=== PATIENT | female | born 1990 | race Caucasian/White ===

== ENCOUNTER 2019-02-16 05:31 | Inpatient (IN) ==
--- NOTE | 2019-02-15 08:49 | PAT Medication Instructions ---
Medication Instructions Date of Service February 15, 2019 Home Medications aspirin 81 mg tablet,delayed release 81 mg PO QAM PNV cmb#95-ferrous fumarate-FA [] 1 tab PO QAM DO NOT take the morning of surgery aspirin 81 mg tablet,delayed release 81 mg PO QAM PNV cmb#95-ferrous fumarate-FA [] 1 tab PO QAM Take morning of surgery NOTHING TO EAT OR DRINK AFTER MIDNIGHT Other Notes If you have any questions please call us at [phone] or [phone] or [phone] or [phone]
--- NOTE | 2019-02-15 13:57 | Anesthesiology Consultation ---
Date of Service February 15, 2019 Assessment & Plan (1) Encounter for pre-operative examination: - No previous anesthesia records Chart Review Chart Review: Acceptable Risk for Surgery and Patient seen in Pre Admission Testing Consults Requested none Teaching & Discussion Pre-Anesthesia Teaching/Discussion Notes: Instructed NPO after midnight before surgery, except medications with 15 cc of water. Medication instructions provided according to the PAT guidelines. History Surgery Operation Date: 02/16/19 07:30 Proposed Procedures p Section in LD - Harman Lipscomb MD Height/Weight Height: 5 ft 10 in Weight: 115.8 kg Allergies Allergy/AdvReac Type Severity Reaction Status Date / Time No Known Allergies Allergy Verified 02/15/19 13:00 Medications Home Medications Medication Instructions Recorded Confirmed Last Taken aspirin 81 mg tablet,delayed 81 mg PO QAM 01/26/19 02/15/19 Unknown release PNV cmb#95-ferrous fumarate-FA 1 tab PO QAM 02/09/19 02/15/19 Unknown [] Past Medical History Medical History History of migraine headaches induced hypertension REASON FOR ASA DAILY Exercise / Class Metabolic Activity II 4-5 Yardwork/Stairs/Walk up hill (Caring for her 3.5 year old. Able to climb stairs. Denies CP or SOB with activity. ) Past Family History Family History Father Dyslipidemia Hypertension Grandmother Breast cancer age 75 Aunt Multiple gestation Grandfather (Paternal) Family history of diabetes mellitus Grandmother (Paternal) Family history of diabetes mellitus Past Surgical History Surgical History S/P tonsillectomy S/P wisdom tooth extraction Past Anesthesia History No Hx of Anesthesia Complications Paternal Uncle had "allergic reaction" to general anesthesia at the age of 12. Now in his 50's. Unsure of any other details. History of PONV No Hx of PONV and No Hx of Motion Sickness Social History Smoking Status: Never smoker Do You Dip or Chew Tobacco: No Hx Alcohol Use: No Hx Substance Use: No substance use type: does not use Review of Systems Patient denies chest pain, shortness of breath, dyspnea on exertion, joint pain, reflux, cough, wheezing, palpitations. Physical Exam Vital Signs BP: 128/84 P: 104 R: 18 T: 97.9 SPO2: 97% on RA ENMT Thyromental Distance: > or= 3.5 Finger Breadths (4) Mallampati Class: I Neck normal visual inspection; neck extension not limited Respiratory normal respiratory effort Auscultation: lungs clear to auscultation bilaterally Cardiovascular Rate/Rhythm: regular rate and regular rhythm Heart Sounds: no murmur Neurologic moves all extremities Psychiatric Orientation: alert and oriented x 3
--- NOTE | 2019-02-15 15:07 | History and Physical Report ---
DATE OF ADMISSION: 02/16/2019 PLANNED PROCEDURE: Primary low transverse section for breech presentation. BRIEF HISTORY: Catarina is a 28-year-old G2, P1-0-0-1, who will be admitted at 39 weeks 5 days gestational age for scheduled primary section for breech presentation. Today, the patient is denying any significant contractions, vaginal bleeding or leakage of fluid, and reporting good movement. The baby was noted to be in persistent breech position on ultrasound today. The options for proceeding with a primary section versus an attempted external cephalic version was had with Catarina and her today. At this point, they are undecided how they would like to proceed, and therefore, we will start planning to proceed with the primary and will convert to an ECV with induction if the patient would like to proceed in that direction. We discussed that the highest probability for success would be if this was done after administration of the spinal which would be being administered for the anyhow. COURSE: The patient presented for care at approximately 10 weeks gestational age. course has been complicated by a breech presentation of fetus as well as Rh negative blood type. The was noted to have pyelectasis on ultrasound with slight improvement on third-trimester reevaluation. PAST MEDICAL HISTORY: The patient denied any significant past medical history. PAST SURGICAL HISTORY: 1. Morgan tooth extraction. 2. Tonsillectomy. PAST OB HISTORY: The patient has had 1 prior normal spontaneous vaginal delivery, delivered at term. The patient underwent an induction of labor for gestational hypertension at 40 weeks with prior . CURRENT MEDICATIONS: 1. vitamins. 2. Baby aspirin. ALLERGIES: The patient denies any known drug allergies. PHYSICAL EXAMINATION: VITAL SIGNS: Today, weight 255 pounds, height 5 feet 10 inches, BMI 36.6. GENERAL: The patient is well appearing in no acute distress, alert and oriented x3. CARDIAC: Regular rate and rhythm. LUNGS: Showed no labored breathing. ABDOMEN: Soft, nontender, gravid with fetus in persistent breech presentation on ultrasound. heart rate was obtained today at 150 beats per minute. EXTREMITIES: Lower extremities were unremarkable bilaterally. ASSESSMENT: Ms. Loera is a 28-year-old G2, P1-0-0-1 with a planned primary section for persistent breech presentation. The options were discussed in clinic today including an external cephalic version versus a primary section. The patient is entirely undecided how she would like to proceed. We discussed that if she would like to do an ECV that we would proceed in the morning towards a section and that after spinal was administered, we would attempt the cephalic version at that time as this has been shown to increase the success rates of version by approximately 50%. The patient will consider her options and we will rediscuss in the morning. Verbal consent for ECV optained. PLAN: 1. Fetus reassuring heart tones obtained today. 2. Labor, the patient not in labor, planning for versus external cephalic version tomorrow. 3. Vitals: The patient had initial blood pressure which was elevated. Recheck after 5 minutes of sitting was noted to be normal. We will continue to monitor. Rh negative. The patient will receive RhoGAM eval after delivery. hemorrhage risk considered low risk. We will collect a CBC, type and screen and since she is proceeding with , we will cross match for 1 unit. UBALDO
[2019-02-16] MEDS: LACTATED RINGER'S 1,000 ML IV SCH ×4 (05:45→23:55)
[2019-02-16 05:54] LABS: Basophils # (auto) 0.02 K/uL (0-0.2); Basophils % (auto) 0.2 %; Eosinophils # (auto) 0.11 K/uL (0-0.5); Eosinophils % (auto) 0.9 %; Hematocrit (blood only) 33.8 % (37-47); Hemoglobin 11.3 g/dL (12.0-16.0); Immature Granulocytes # (auto) 0.07 K/uL (0.00-0.02); Immature Granulocytes % (auto) 0.6 %; Lymphocytes # (auto) 1.94 K/uL (1.2-3.4); Mean Corpuscular Hemoglobin 27.8 pg (25-34); Mean Platelet Volume 11.2 fL (7.4-10.4); Monocytes # (auto) 0.88 K/uL (0.11-0.59); Monocytes % (auto) 7.3 %; Neutrophils # (auto) 9.09 K/uL (1.4-6.5); Platelet Count 205 K/uL (130-400); RDW Coefficient of Variation 14.9 % (11.5-14.5); RDW Standard Deviation 45.3 fL (36.4-46.3); Red Blood Count 4.07 M/uL (4.2-5.4); White Blood Count 12.11 K/uL (4.8-10.8)
[2019-02-16 05:58] LABS: Mean Corpuscular Hgb Conc 33.4 g/dL (32-36)
[2019-02-16] MEDS ORDERED: CEFAZOLIN 3,000 MG in DEXTROSE 5% 50 ML IV SCH (06:00)
[2019-02-16] MEDS ORDERED: CITRIC ACID/SODIUM CITRATE 15 ML UDC PO SCH (06:00)
--- NOTE | 2019-02-16 07:35 | History & Physical Bridge Note ---
Date of Service February 16, 2019 History & Physical Bridge Note I have examined the patient, reviewed the History & Physical and in the interval since the performance of the History & Physical I have noted the following changes of clinical significance: no changes noted
[2019-02-16] MEDS ORDERED: BUPIVACAINE 0.5 % 5 MG/1 ML PF 10ML VIAL ONE (07:56)
[2019-02-16] MEDS ORDERED: ePHEDrine sulfate 50 MG/ML AMP ONE (08:30)
[2019-02-16] MEDS ORDERED: ePHEDrine sulfate 50 MG/ML SYR ONE (08:30)
[2019-02-16] MEDS ORDERED: PHENYLEPHRINE 100MCG/ML 5ML SYR ONE (08:30)
[2019-02-16] MEDS ORDERED: fentaNYL 2MCG/ML ROPIV 1.25MG/ML 100 ML BAG EPI ONE (08:49)
[2019-02-16] MEDS ORDERED: OXYTOCIN 30 UNITS/500 ML BAG IV PRN ×2 (08:54→08:55)
[2019-02-16] MEDS ORDERED: LACTATED RINGER'S 1,000 ML IV PRN (08:54)
[2019-02-16] MEDS ORDERED: fentaNYL 2MCG/ML ROPIV 1.25MG/ML 100 ML BAG EPI PRN (09:11)
[2019-02-16] MEDS ORDERED: DiphenhydrAMINE HCL 50 MG/ML VIAL IV PRN (09:11)
[2019-02-16] MEDS ORDERED: NALOXONE HCL 0.4 MG/1 ML VIAL/CARP IV PRN (09:11)
[2019-02-16] MEDS ORDERED: ePHEDrine sulfate 50 MG/ML AMP IV PRN (09:11)
[2019-02-16] MEDS ORDERED: NALBUPHINE HCL INJ 10 MG/ML AMP IV PRN (09:11)
[2019-02-16] MEDS ORDERED: ONDANSETRON INJ 2 MG/ML 2 ML VIAL IV PRN (09:11)
[2019-02-16] MEDS ORDERED: NALOXONE HCL 1 MG in SODIUM CHLORIDE 0.9% 1000ML 1,000 ML IV PRN (09:11)
--- NOTE | 2019-02-16 09:25 | Labor Progress Brief Note ---
Date of Service February 16, 2019 Subjective A successful ECV was performed in the OR under epidural anesthesia. The procedure was completed in approximately 1 minute and was complicated by bradycardia lasting approximately 3-4 minutes. There was also noted to be maternal hypotension following epidural which contributed to bradycardia. Monitoring continued in the OR for about 20-25 minutes following ECV. Patient doing well. Assessment & Plan (1) Supervision of normal intrauterine in multigravida: 28yo at 39.5 weeks GA. IOL following successful ECV. 1. Fetus: Cat 1 2. Labor: Will start augmentation with oxytocin and AROM when able 3. Vitals: Stable at present. will continue to monitor 4. Epidural in place 5. GBS negative 6. Rh negative - Rh eval following delivery Physical Exam Gastrointestinal (Abdomen): Inspection/Auscultation: abdomen normal to inspection Percussion/Palpation: abdomen soft; abdomen nontender Genitourinary: OB Exam Abdomen: + vertex (Reconfirmed via US at time of cervic al exam ) Manual OB Exam: + cervical dilation 1 cm, + cervical effacement 40% and + station high OB Exam Monitor Tracing: + external FHT monitor used, + external uterine monitor used, + category I and + normal FHT variability Results & Data Vital Signs (Past 12 Hours) Vital Signs Temp Pulse Resp BP Pulse Ox 02/16/19 09:14 101 H 104/63 02/16/19 09:10 100 H 99 02/16/19 09:05 95 H 100 02/16/19 09:00 104 H 99 02/16/19 08:58 103 H 142/65 H 02/16/19 08:56 109 H 147/68 H 02/16/19 08:55 111 H 149/69 H 100 02/16/19 08:53 110 H 142/72 H 02/16/19 08:50 108 H 129/65 100 02/16/19 08:49 107 H 134/63 02/16/19 08:47 109 H 136/64 02/16/19 07:06 37.1 C 18 02/16/19 07:02 73 140/77 02/16/19 06:26 75 130/78 02/16/19 05:44 36.7 C 18 02/16/19 05:38 36.7 C 92 H 18 156/82 H
--- NOTE | 2019-02-16 10:15 | Post Operative Brief Note ---
PG Immediate Post Op with CF Date of Surgery February 16, 2019 Pre & Post Diagnosis Operation Date: 02/16/19 07:30 <No data on this case meets the specified criteria> Pre operative: Breech presentation Post-operative: Successful cephalic version Procedure Operation Date: 02/16/19 07:30 External cephalic version Surgeon Harman Lipscomb MD Agile Qa Tester None Estimated Blood Loss 0 Findings Consistent with Post-Op Diagnosis
--- NOTE | 2019-02-16 11:35 | Anesthesiology Progress Note ---
Date of Service February 16, 2019 Anesthesia Post Procedure Vital Signs Vital Signs: Temp Pulse Resp BP Pulse Ox 02/16/19 11:30 88 97 02/16/19 11:25 85 97 02/16/19 11:20 93 H 96 02/16/19 11:15 98 H 92/55 L 96 02/16/19 11:10 93 H 97 02/16/19 11:05 87 97 02/16/19 11:00 88 96 02/16/19 10:55 98 H 96 02/16/19 10:50 95 H 96 02/16/19 10:45 89 131/63 97 02/16/19 10:40 89 96 02/16/19 10:35 96 H 96 02/16/19 10:30 95 H 96 02/16/19 10:29 88 125/60 02/16/19 10:25 90 96 02/16/19 10:20 90 95 02/16/19 10:15 88 133/61 97 02/16/19 10:10 89 96 02/16/19 10:05 90 96 02/16/19 10:00 102 H 96 02/16/19 09:59 86 131/64 02/16/19 09:55 93 H 97 02/16/19 09:50 97 H 98 02/16/19 09:45 94 H 97 02/16/19 09:44 98 H 135/67 02/16/19 09:40 97 H 98 02/16/19 09:35 92 H 99 02/16/19 09:31 97 H 137/61 02/16/19 09:30 104 H 99 02/16/19 09:25 100 H 99 02/16/19 09:20 99 H 99 02/16/19 09:15 94 H 99 02/16/19 09:14 101 H 104/63 02/16/19 09:10 100 H 99 02/16/19 09:05 95 H 100 02/16/19 09:00 104 H 99 02/16/19 08:58 37.0 C 103 H 18 142/65 H 02/16/19 08:56 109 H 147/68 H 02/16/19 08:55 111 H 149/69 H 100 02/16/19 08:53 110 H 142/72 H 02/16/19 08:50 108 H 129/65 100 02/16/19 08:49 107 H 134/63 02/16/19 08:47 109 H 136/64 02/16/19 07:06 37.1 C 02/16/19 07:02 73 140/77 02/16/19 06:26 75 130/78 02/16/19 05:44 36.7 C 02/16/19 05:38 36.7 C 92 H 18 156/82 H Transfer of Care Handoff Completed per policy Notes Mental Status: alert / awake / arousable and participated in evaluation Nausea / Vomiting: adequately controlled Pain: adequately controlled Airway Patency, RR, SpO2: stable & adequate BP & HR: stable & adequate Hydration State: stable & adequate Neuraxial Anesthesia: was administered and see Notes below Anesthetic Complications: no major complications apparent and Pt Satisfied with anesthetic care Notes: Epidural placed for version in operating room. Epidural left in place post successful version and will be used for labor pain.
--- NOTE | 2019-02-16 12:26 | Operative Report ---
DATE OF OPERATION: 02/16/2019 PROCEDURE: External cephalic version. SURGEON: Dr. Harman Lipscomb. PREOPERATIVE DIAGNOSES: 1. breech presentation. 2. Term . POSTOPERATIVE DIAGNOSES: 1. breech presentation. 2. Term . 3. Status post successful external cephalic version. BLOOD LOSS: None. COMPLICATIONS: None. INDICATIONS: The patient is a 28-year-old G2, P1-0-0-1, admitted at 39 weeks 5 days gestational age for external cephalic version with transition to induction of labor versus if unsuccessful. The verbal consents for the CV and written consents for the were obtained prior to proceeding to the OR for the external cephalic version. DESCRIPTION OF PROCEDURE: The patient was taken to the Operating Room for a planned external cephalic version, was transitioned to if unsuccessful versus induction of labor if version is successful. Upon presentation, the patient was properly identified. An epidural anesthesia was then placed to increase the success rates for the external cephalic version and allow for transition to the if indicated. After the epidural anesthesia was placed successfully, the patient was placed in supine position. An ultrasound was performed and noted the fetus still in breech presentation. A heart rate was noted to be normal at that time. An external cephalic version was then performed with version of the fetus to cephalic position without significant difficulty. After the version was complete, heart rate monitor was then placed. heart rate at that time was noted to be approximately 100. Maternal blood pressure was noted to be hypotensive and resuscitative efforts were instituted. The heart rate was noted to slowly come up back into the 110s and 120s and accelerations were noted approximately 6-7 minutes after the version was complete. After approximately 20-minute period of monitoring was continued with fetus noted to be category 1 and transitioned to a reactive strip. A repeat ultrasound for position was performed prior to removing the patient from the OR back to the Labor and Delivery room and the was noted to be continued cephalic position. The patient was noted to have tolerated the procedure well and induction of labor was subsequently initiated. I attest to the content of the Intraoperative Record and any orders documented therein. Any exception s are noted below.
--- NOTE | 2019-02-16 13:00 | Labor Progress Brief Note ---
Date of Service February 16, 2019 Subjective Reason For Note: Routine Evaluation Current Pain Level(1-10): 0 Assessment & Plan (1) Supervision of normal intrauterine in multigravida: 28yo at 39.5 weeks GA. IOL following successful ECV. 1. Fetus: Cat 1 2. Labor: Continue oxytocin and AROM when able 3. Vitals: Stable at present. will continue to monitor 4. Epidural in place 5. GBS negative 6. Rh negative - Rh eval following delivery Physical Exam Genitourinary: OB Exam Abdomen: + vertex Manual OB Exam: + cervical dilation 2 cm, + cervical effacement 40% and + station high OB Exam Monitor Tracing: + external FHT monitor used, + external uterine monitor used, + category I and + normal FHT variability Results & Data Vital Signs (Past 12 Hours) Vital Signs Temp Pulse Resp BP Pulse Ox 02/16/19 12:55 96 H 97 02/16/19 12:50 83 98 02/16/19 12:45 85 146/67 H 97 02/16/19 12:40 89 96 02/16/19 12:35 90 97 02/16/19 12:30 92 H 97 02/16/19 12:29 82 142/66 H 02/16/19 12:25 88 98 02/16/19 12:20 91 H 97 02/16/19 12:15 85 97 02/16/19 12:14 88 137/65 02/16/19 12:10 90 98 02/16/19 12:05 92 H 97 02/16/19 12:01 37.0 C 18 02/16/19 12:00 93 H 98 02/16/19 11:59 88 127/62 02/16/19 11:55 88 98 02/16/19 11:50 82 97 02/16/19 11:45 80 98 02/16/19 11:44 89 123/59 L 02/16/19 11:40 92 H 97 02/16/19 11:35 91 H 97 02/16/19 11:30 88 97 02/16/19 11:25 85 97 02/16/19 11:20 93 H 96 02/16/19 11:15 98 H 92/55 L 96 02/16/19 11:10 93 H 97 02/16/19 11:05 87 97 02/16/19 11:00 88 96 02/16/19 10:55 98 H 96 02/16/19 10:50 95 H 96 02/16/19 10:45 89 131/63 97 02/16/19 10:40 89 96 02/16/19 10:35 96 H 96 02/16/19 10:30 95 H 96 02/16/19 10:29 88 125/60 02/16/19 10:25 90 96 02/16/19 10:20 90 95 02/16/19 10:15 88 133/61 97 02/16/19 10:10 89 96 02/16/19 10:05 90 96 02/16/19 10:00 102 H 96 02/16/19 09:59 86 131/64 02/16/19 09:55 93 H 97 02/16/19 09:50 97 H 98 02/16/19 09:45 94 H 97 02/16/19 09:44 98 H 135/67 02/16/19 09:40 97 H 98 02/16/19 09:35 92 H 99 02/16/19 09:31 97 H 137/61 02/16/19 09:30 104 H 99 02/16/19 09:25 100 H 99 02/16/19 09:20 99 H 99 02/16/19 09:15 94 H 99 02/16/19 09:14 101 H 104/63 02/16/19 09:10 100 H 99 02/16/19 09:05 95 H 100 02/16/19 09:00 104 H 99 02/16/19 08:58 37.0 C 103 H 18 142/65 H 02/16/19 08:56 109 H 147/68 H 02/16/19 08:55 111 H 149/69 H 100 02/16/19 08:53 110 H 142/72 H 02/16/19 08:50 108 H 129/65 100 02/16/19 08:49 107 H 134/63 02/16/19 08:47 109 H 136/64 02/16/19 07:06 37.1 C 18 02/16/19 07:02 73 140/77 02/16/19 06:26 75 130/78 02/16/19 05:44 36.7 C 18 02/16/19 05:38 36.7 C 92 H 18 156/82 H
--- NOTE | 2019-02-16 16:43 | Obstetrical Progress Note ---
Date of Service February 16, 2019 Subjective induction after successful version today. Potocin and AROM already done. 3, 50%, -3. vertex by palpation Results & Data Vital Signs (Past 12 Hours) Vital Signs Temp Pulse Resp BP Pulse Ox 02/16/19 16:40 87 99 02/16/19 16:35 78 97 02/16/19 16:30 86 98 02/16/19 16:29 85 123/58 L 02/16/19 16:25 75 98 02/16/19 16:20 82 98 02/16/19 16:15 87 98 02/16/19 16:14 88 123/60 02/16/19 16:10 91 H 97 02/16/19 16:05 87 98 02/16/19 16:01 85 118/56 L 02/16/19 16:00 84 98 02/16/19 15:57 99.0 F 18 02/16/19 15:55 86 98 02/16/19 15:50 77 98 02/16/19 15:45 78 131/68 98 02/16/19 15:40 77 97 02/16/19 15:35 82 97 02/16/19 15:30 81 97 02/16/19 15:29 78 133/66 02/16/19 15:25 81 97 02/16/19 15:20 86 97 02/16/19 15:15 82 97 02/16/19 15:14 80 130/64 02/16/19 15:10 84 97 02/16/19 15:05 76 97 02/16/19 15:00 83 135/68 97 02/16/19 14:55 85 97 02/16/19 14:50 85 97 02/16/19 14:45 80 97 02/16/19 14:44 80 143/69 H 02/16/19 14:40 81 97 02/16/19 14:35 92 H 97 02/16/19 14:34 98.8 F 18 02/16/19 14:30 87 98 02/16/19 14:29 77 141/66 H 02/16/19 14:25 96 H 97 02/16/19 14:20 81 98 02/16/19 14:15 86 97 02/16/19 14:14 85 139/65 02/16/19 14:10 83 97 02/16/19 14:05 86 97 02/16/19 14:00 80 97 02/16/19 13:59 83 140/65 02/16/19 13:55 93 H 97 02/16/19 13:50 90 97 02/16/19 13:45 87 97 02/16/19 13:44 93 H 147/79 H 02/16/19 13:40 80 98 02/16/19 13:35 78 97 02/16/19 13:30 90 97 02/16/19 13:29 95 H 135/73 02/16/19 13:25 84 97 02/16/19 13:20 85 97 02/16/19 13:15 73 97 02/16/19 13:14 78 134/65 02/16/19 13:10 87 98 02/16/19 13:05 88 96 02/16/19 13:00 92 H 97 02/16/19 12:59 86 111/56 L 02/16/19 12:55 96 H 97 02/16/19 12:50 83 98 02/16/19 12:45 85 146/67 H 97 02/16/19 12:40 89 96 02/16/19 12:35 90 97 02/16/19 12:30 92 H 97 02/16/19 12:29 82 142/66 H 02/16/19 12:25 88 98 02/16/19 12:20 91 H 97 02/16/19 12:15 85 97 02/16/19 12:14 88 137/65 02/16/19 12:10 90 98 02/16/19 12:05 92 H 97 02/16/19 12:01 98.6 F 18 02/16/19 12:00 93 H 98 02/16/19 11:59 88 127/62 02/16/19 11:55 88 98 02/16/19 11:50 82 97 02/16/19 11:45 80 98 02/16/19 11:44 89 123/59 L 02/16/19 11:40 92 H 97 02/16/19 11:35 91 H 97 02/16/19 11:30 88 97 02/16/19 11:25 85 97 02/16/19 11:20 93 H 96 02/16/19 11:15 98 H 92/55 L 96 02/16/19 11:10 93 H 97 02/16/19 11:05 87 97 02/16/19 11:00 88 96 02/16/19 10:55 98 H 96 02/16/19 10:50 95 H 96 02/16/19 10:45 89 131/63 97 02/16/19 10:40 89 96 02/16/19 10:35 96 H 96 02/16/19 10:30 95 H 96 02/16/19 10:29 88 125/60 02/16/19 10:25 90 96 02/16/19 10:20 90 95 02/16/19 10:15 88 133/61 97 02/16/19 10:10 89 96 02/16/19 10:05 90 96 02/16/19 10:00 102 H 96 02/16/19 09:59 86 131/64 02/16/19 09:55 93 H 97 02/16/19 09:50 97 H 98 02/16/19 09:45 94 H 97 02/16/19 09:44 98 H 135/67 02/16/19 09:40 97 H 98 02/16/19 09:35 92 H 99 02/16/19 09:31 97 H 137/61 02/16/19 09:30 104 H 99 02/16/19 09:25 100 H 99 02/16/19 09:20 99 H 99 02/16/19 09:15 94 H 99 02/16/19 09:14 101 H 104/63 02/16/19 09:10 100 H 99 02/16/19 09:05 95 H 100 02/16/19 09:00 104 H 99 02/16/19 08:58 98.6 F 103 H 18 142/65 H 02/16/19 08:56 109 H 147/68 H 02/16/19 08:55 111 H 149/69 H 100 02/16/19 08:53 110 H 142/72 H 02/16/19 08:50 108 H 129/65 100 02/16/19 08:49 107 H 134/63 02/16/19 08:47 109 H 136/64 02/16/19 07:06 98.8 F 18 02/16/19 07:02 73 140/77 02/16/19 06:26 75 130/78 02/16/19 05:44 98.1 F 18 02/16/19 05:38 98.1 F 92 H 18 156/82 H PG Care Time/CCT Total # of Minutes Spent Total Time Spent with Patient: Total time spent is greater than 50% in coordination of care (as documented) at patient's floor/unit and/or counseling patient:
--- NOTE | 2019-02-16 18:32 | Labor Progress Brief Note ---
Date of Service February 16, 2019 Cervix 4cm, -3 60% IUPC placed as difficult to measure contractions Results & Data Vital Signs (Past 12 Hours) Vital Signs Temp Pulse Resp BP Pulse Ox 02/16/19 18:25 90 98 02/16/19 18:20 85 98 02/16/19 18:15 83 98 02/16/19 18:14 77 110/59 L 02/16/19 18:10 83 98 02/16/19 18:05 79 98 02/16/19 18:00 70 16 98 02/16/19 17:59 75 120/56 L 02/16/19 17:55 79 97 02/16/19 17:50 83 97 02/16/19 17:45 81 98 02/16/19 17:44 76 119/58 L 02/16/19 17:40 77 97 02/16/19 17:35 78 97 02/16/19 17:30 80 98 02/16/19 17:29 75 114/56 L 02/16/19 17:25 71 98 02/16/19 17:20 80 97 02/16/19 17:15 78 99 02/16/19 17:14 79 123/59 L 02/16/19 17:10 75 96 02/16/19 17:05 81 97 02/16/19 17:00 81 126/61 97 02/16/19 16:55 83 97 02/16/19 16:50 85 98 02/16/19 16:49 88 94 02/16/19 16:45 73 98 02/16/19 16:44 73 118/59 L 02/16/19 16:40 87 99 02/16/19 16:35 78 97 02/16/19 16:30 86 98 02/16/19 16:29 85 123/58 L 02/16/19 16:25 75 98 02/16/19 16:20 82 98 02/16/19 16:15 87 98 02/16/19 16:14 88 123/60 02/16/19 16:10 91 H 97 02/16/19 16:05 87 98 02/16/19 16:01 85 118/56 L 02/16/19 16:00 84 98 02/16/19 15:57 99.0 F 18 02/16/19 15:55 86 98 02/16/19 15:50 77 98 02/16/19 15:45 78 131/68 98 02/16/19 15:40 77 97 02/16/19 15:35 82 97 02/16/19 15:30 81 97 02/16/19 15:29 78 133/66 02/16/19 15:25 81 97 02/16/19 15:20 86 97 02/16/19 15:15 82 97 02/16/19 15:14 80 130/64 02/16/19 15:10 84 97 02/16/19 15:05 76 97 02/16/19 15:00 83 135/68 97 02/16/19 14:55 85 97 02/16/19 14:50 85 97 02/16/19 14:45 80 97 02/16/19 14:44 80 143/69 H 02/16/19 14:40 81 97 02/16/19 14:35 92 H 97 02/16/19 14:34 98.8 F 18 02/16/19 14:30 87 98 02/16/19 14:29 77 141/66 H 02/16/19 14:25 96 H 97 02/16/19 14:20 81 98 02/16/19 14:15 86 97 02/16/19 14:14 85 139/65 02/16/19 14:10 83 97 02/16/19 14:05 86 97 02/16/19 14:00 80 97 02/16/19 13:59 83 140/65 02/16/19 13:55 93 H 97 02/16/19 13:50 90 97 02/16/19 13:45 87 97 02/16/19 13:44 93 H 147/79 H 02/16/19 13:40 80 98 02/16/19 13:35 78 97 02/16/19 13:30 90 97 02/16/19 13:29 95 H 135/73 02/16/19 13:25 84 97 02/16/19 13:20 85 97 02/16/19 13:15 73 97 02/16/19 13:14 78 134/65 02/16/19 13:10 87 98 02/16/19 13:05 88 96 02/16/19 13:00 92 H 97 02/16/19 12:59 86 111/56 L 02/16/19 12:55 96 H 97 02/16/19 12:50 83 98 02/16/19 12:45 85 146/67 H 97 02/16/19 12:40 89 96 02/16/19 12:35 90 97 02/16/19 12:30 92 H 97 02/16/19 12:29 82 142/66 H 02/16/19 12:25 88 98 02/16/19 12:20 91 H 97 02/16/19 12:15 85 97 02/16/19 12:14 88 137/65 02/16/19 12:10 90 98 02/16/19 12:05 92 H 97 02/16/19 12:01 98.6 F 18 02/16/19 12:00 93 H 98 02/16/19 11:59 88 127/62 02/16/19 11:55 88 98 02/16/19 11:50 82 97 02/16/19 11:45 80 98 02/16/19 11:44 89 123/59 L 02/16/19 11:40 92 H 97 02/16/19 11:35 91 H 97 02/16/19 11:30 88 97 02/16/19 11:25 85 97 02/16/19 11:20 93 H 96 02/16/19 11:15 98 H 92/55 L 96 02/16/19 11:10 93 H 97 02/16/19 11:05 87 97 02/16/19 11:00 88 96 02/16/19 10:55 98 H 96 02/16/19 10:50 95 H 96 02/16/19 10:45 89 131/63 97 02/16/19 10:40 89 96 02/16/19 10:35 96 H 96 02/16/19 10:30 95 H 96 02/16/19 10:29 88 125/60 02/16/19 10:25 90 96 02/16/19 10:20 90 95 02/16/19 10:15 88 133/61 97 02/16/19 10:10 89 96 02/16/19 10:05 90 96 02/16/19 10:00 102 H 96 02/16/19 09:59 86 131/64 02/16/19 09:55 93 H 97 02/16/19 09:50 97 H 98 02/16/19 09:45 94 H 97 02/16/19 09:44 98 H 135/67 02/16/19 09:40 97 H 98 02/16/19 09:35 92 H 99 02/16/19 09:31 97 H 137/61 02/16/19 09:30 104 H 99 02/16/19 09:25 100 H 99 02/16/19 09:20 99 H 99 02/16/19 09:15 94 H 99 02/16/19 09:14 101 H 104/63 02/16/19 09:10 100 H 99 02/16/19 09:05 95 H 100 02/16/19 09:00 104 H 99 02/16/19 08:58 98.6 F 103 H 18 142/65 H 02/16/19 08:56 109 H 147/68 H 02/16/19 08:55 111 H 149/69 H 100 02/16/19 08:53 110 H 142/72 H 02/16/19 08:50 108 H 129/65 100 02/16/19 08:49 107 H 134/63 02/16/19 08:47 109 H 136/64 02/16/19 07:06 98.8 F 18 02/16/19 07:02 73 140/77
[2019-02-16] MEDS ORDERED: BUPIVACAINE 0.25% 30 ML VIAL ONE (23:36)
[2019-02-16] MEDS ORDERED: fentaNYL citrate 100 MCG/2 ML VIAL ONE (23:37)
--- NOTE | 2019-02-17 00:04 | Obstetrical Progress Note ---
Date of Service February 17, 2019 Subjective 6cm now. However, some recurrent variables present. Good accels including nice r esponse to scalp stimulation. Plan to keep monitoring closely and await progress as she is a multip and I'm hoping for some more rapid change from 6cm Results & Data Vital Signs (Past 12 Hours) Vital Signs Temp Pulse Resp BP Pulse Ox 02/17/19 00:00 81 121/59 L 02/16/19 23:58 83 116/59 L 02/16/19 23:56 85 127/65 02/16/19 23:55 87 96 02/16/19 23:54 86 118/61 02/16/19 23:52 83 124/71 02/16/19 23:50 92 H 122/67 96 02/16/19 23:48 86 127/63 02/16/19 23:47 83 121/63 94 02/16/19 23:45 86 97 02/16/19 23:44 78 122/76 02/16/19 23:43 82 117/70 02/16/19 23:40 82 98 02/16/19 23:35 77 97 02/16/19 23:30 85 98 02/16/19 23:29 77 125/58 L 02/16/19 23:25 75 97 02/16/19 23:20 78 96 02/16/19 23:15 83 98 02/16/19 23:14 75 117/56 L 02/16/19 23:10 83 97 02/16/19 23:05 79 97 02/16/19 23:00 70 18 107/55 L 96 02/16/19 22:55 76 97 02/16/19 22:50 81 96 02/16/19 22:45 79 96 02/16/19 22:44 76 121/69 02/16/19 22:40 85 96 02/16/19 22:35 84 97 02/16/19 22:30 84 18 98 02/16/19 22:29 76 124/72 02/16/19 22:25 74 96 02/16/19 22:20 82 97 02/16/19 22:15 83 97 02/16/19 22:14 75 119/68 02/16/19 22:10 86 97 02/16/19 22:05 84 98 02/16/19 22:00 81 18 97 02/16/19 21:59 75 129/68 02/16/19 21:55 83 97 02/16/19 21:50 82 96 02/16/19 21:45 79 97 02/16/19 21:44 79 125/65 02/16/19 21:40 79 96 02/16/19 21:35 78 97 02/16/19 21:30 75 18 130/71 97 02/16/19 21:25 78 97 02/16/19 21:20 85 97 02/16/19 21:16 93 H 91 02/16/19 21:15 84 132/70 97 02/16/19 21:10 85 97 02/16/19 21:05 85 97 02/16/19 21:00 99.0 F 85 18 139/65 98 02/16/19 20:55 87 96 02/16/19 20:50 85 96 02/16/19 20:45 88 96 02/16/19 20:44 86 124/60 02/16/19 20:40 88 96 02/16/19 20:35 87 97 02/16/19 20:30 84 18 97 02/16/19 20:29 85 123/59 L 02/16/19 20:25 85 96 02/16/19 20:20 84 96 02/16/19 20:15 82 97 02/16/19 20:14 81 123/57 L 02/16/19 20:10 85 97 02/16/19 20:05 87 97 02/16/19 20:00 80 18 97 02/16/19 19:59 83 132/60 02/16/19 19:55 83 97 02/16/19 19:50 86 96 02/16/19 19:45 83 97 02/16/19 19:44 77 128/61 02/16/19 19:40 89 97 02/16/19 19:35 85 97 02/16/19 19:30 83 18 141/86 H 97 02/16/19 19:25 88 97 02/16/19 19:20 93 H 97 02/16/19 19:15 88 97 02/16/19 19:14 86 137/73 02/16/19 19:10 89 98 02/16/19 19:05 99.0 F 91 H 18 97 02/16/19 19:00 81 139/74 98 02/16/19 18:55 86 97 02/16/19 18:50 83 97 02/16/19 18:45 90 138/69 98 02/16/19 18:40 86 98 02/16/19 18:35 95 H 99 02/16/19 18:32 72 150/68 H 02/16/19 18:30 76 98 02/16/19 18:25 90 98 02/16/19 18:20 85 98 02/16/19 18:15 83 98 02/16/19 18:14 98.6 F 77 18 110/59 L 02/16/19 18:10 83 98 02/16/19 18:05 79 98 02/16/19 18:00 70 16 98 02/16/19 17:59 75 120/56 L 02/16/19 17:55 79 97 02/16/19 17:50 83 97 02/16/19 17:45 81 98 02/16/19 17:44 76 119/58 L 02/16/19 17:40 77 97 02/16/19 17:35 78 97 02/16/19 17:30 80 98 02/16/19 17:29 75 114/56 L 02/16/19 17:25 71 98 02/16/19 17:20 80 97 02/16/19 17:15 78 99 02/16/19 17:14 79 123/59 L 02/16/19 17:10 75 96 02/16/19 17:05 81 97 02/16/19 17:00 81 126/61 97 02/16/19 16:55 83 97 02/16/19 16:50 85 98 02/16/19 16:49 88 94 02/16/19 16:45 73 98 02/16/19 16:44 73 118/59 L 02/16/19 16:40 87 99 02/16/19 16:35 78 97 02/16/19 16:30 86 98 02/16/19 16:29 85 123/58 L 02/16/19 16:25 75 98 02/16/19 16:20 82 98 02/16/19 16:15 87 98 02/16/19 16:14 88 123/60 02/16/19 16:10 91 H 97 02/16/19 16:05 87 98 02/16/19 16:01 85 118/56 L 02/16/19 16:00 84 98 02/16/19 15:57 99.0 F 18 02/16/19 15:55 86 98 02/16/19 15:50 77 98 02/16/19 15:45 78 131/68 98 02/16/19 15:40 77 97 02/16/19 15:35 82 97 02/16/19 15:30 81 97 02/16/19 15:29 78 133/66 02/16/19 15:25 81 97 02/16/19 15:20 86 97 02/16/19 15:15 82 97 02/16/19 15:14 80 130/64 02/16/19 15:10 84 97 02/16/19 15:05 76 97 02/16/19 15:00 83 135/68 97 02/16/19 14:55 85 97 02/16/19 14:50 85 97 02/16/19 14:45 80 97 02/16/19 14:44 80 143/69 H 02/16/19 14:40 81 97 02/16/19 14:35 92 H 97 02/16/19 14:34 98.8 F 18 02/16/19 14:30 87 98 02/16/19 14:29 77 141/66 H 02/16/19 14:25 96 H 97 02/16/19 14:20 81 98 02/16/19 14:15 86 97 02/16/19 14:14 85 139/65 02/16/19 14:10 83 97 02/16/19 14:05 86 97 02/16/19 14:00 80 97 02/16/19 13:59 83 140/65 02/16/19 13:55 93 H 97 02/16/19 13:50 90 97 02/16/19 13:45 87 97 02/16/19 13:44 93 H 147/79 H 02/16/19 13:40 80 98 02/16/19 13:35 78 97 02/16/19 13:30 90 97 02/16/19 13:29 95 H 135/73 02/16/19 13:25 84 97 02/16/19 13:20 85 97 02/16/19 13:15 73 97 02/16/19 13:14 78 134/65 02/16/19 13:10 87 98 02/16/19 13:05 88 96 02/16/19 13:00 92 H 97 02/16/19 12:59 86 111/56 L 02/16/19 12:55 96 H 97 02/16/19 12:50 83 98 02/16/19 12:45 85 146/67 H 97 02/16/19 12:40 89 96 02/16/19 12:35 90 97 02/16/19 12:30 92 H 97 02/16/19 12:29 82 142/66 H 02/16/19 12:25 88 98 02/16/19 12:20 91 H 97 02/16/19 12:15 85 97 02/16/19 12:14 88 137/65 02/16/19 12:10 90 98 02/16/19 12:05 92 H 97 PG Care Time/CCT Total # of Minutes Spent Total Time Spent with Patient: Total time spent is greater than 50% in coordination of care (as documented) at patient's floor/unit and/or counseling patient:
[2019-02-17] MEDS ORDERED: CITRIC ACID/SODIUM CITRATE 15 ML UDC ONE (00:28)
--- NOTE | 2019-02-17 00:29 | History & Physical Report ---
Date of Service February 17, 2019 Successful version from this am induced with slow progress, however 6cm, -2 with severe variables. Offered continued labor or C/S, she prefers C/S. Assessment & Plan (1) Non-reassuring status: section. The patient was counseled to the nature of the procedure including alternatives such as labor. Risks were discussed including bleeding infection injury to bowel bladder ureter vessels and even baby. Deep Vein thrombosis, pulmonary embolus discussed. Breakdown of incision reviewed. Deep vein thrombosis pulmonary embolus hernia and failure of the incision to heal were discussed Patient verbalized understanding of this and was given ample time to ask questions Increased risks of infection discussed with prolonged labor History of Present Illness Primary Care Provider: NO PCP Allergies Allergy/AdvReac Type Severity Reaction Status Date / Time No Known Allergies Allergy Verified 02/15/19 13:00 Home Medications Home Medications Medication Instructions Recorded Confirmed Type aspirin 81 mg tablet,delayed 81 mg PO QAM 01/26/19 02/16/19 History release PNV cmb#95-ferrous fumarate-FA 1 tab PO QAM 02/09/19 02/16/19 History [] Patient History Medical History induced hypertension REASON FOR ASA DAILY History of migraine headaches Surgical History S/P tonsillectomy S/P wisdom tooth extraction Family History Father Dyslipidemia Hypertension Grandmother Breast cancer age 75 Aunt Multiple gestation Grandfather (Paternal) Family history of diabetes mellitus Grandmother (Paternal) Family history of diabetes mellitus Social History Preferred Language: Lithuanian Communication Ability: Effective 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 Required: No Beliefs That Will Affect Care: None marital status: Single Current Living Situation: Family and Significant Other Other Information That Helps Us Care for You: No Feels Safe at Home: Yes Safety Concerns: Feels Safe At This Time Smoking Status: Never smoker Do You Dip or Chew Tobacco: No ; Second Hand Exposure: No ; Tobacco Cessation Education Requested by Patient: No Hx Alcohol Use: No Hx Substance Use: No Physical Exam Constitutional: WD/WN, vitals as above Respiratory: normal respiratory effort, lungs clear to auscultation Cardiovascular: RRR, no murmur, no edema Genitourinary: no vaginal lesions, no adnexal mass OB Exam Abdomen: + vertex Manual OB Exam: + cervical dilation 6 cm, + cervical effacement 90% and + station -2 OB Exam Monitor Tracing: + scalp electrode used Results & Data Vital Signs (Past 12 Hours) Vital Signs Temp Pulse Resp BP Pulse Ox 02/17/19 00:20 92 H 97 02/17/19 00:18 90 144/80 H 02/17/19 00:15 84 98 02/17/19 00:10 88 97 02/17/19 00:05 84 97 02/17/19 00:00 80 18 121/59 L 97 02/16/19 23:58 83 116/59 L 02/16/19 23:56 85 127/65 02/16/19 23:55 87 96 02/16/19 23:54 86 118/61 02/16/19 23:52 83 124/71 02/16/19 23:50 92 H 122/67 96 02/16/19 23:48 86 127/63 02/16/19 23:47 83 121/63 94 02/16/19 23:45 86 97 02/16/19 23:44 78 122/76 02/16/19 23:43 82 117/70 02/16/19 23:40 82 98 02/16/19 23:35 77 97 02/16/19 23:30 85 18 98 02/16/19 23:29 77 125/58 L 02/16/19 23:25 75 97 02/16/19 23:20 78 96 02/16/19 23:15 83 98 02/16/19 23:14 75 117/56 L 02/16/19 23:10 83 97 02/16/19 23:05 79 97 02/16/19 23:00 70 18 107/55 L 96 02/16/19 22:55 76 97 02/16/19 22:50 81 96 02/16/19 22:45 79 96 02/16/19 22:44 76 121/69 02/16/19 22:40 85 96 02/16/19 22:35 84 97 02/16/19 22:30 84 18 98 02/16/19 22:29 76 124/72 02/16/19 22:25 74 96 02/16/19 22:20 82 97 02/16/19 22:15 83 97 02/16/19 22:14 75 119/68 02/16/19 22:10 86 97 02/16/19 22:05 84 98 02/16/19 22:00 81 18 97 02/16/19 21:59 75 129/68 02/16/19 21:55 83 97 02/16/19 21:50 82 96 02/16/19 21:45 79 97 02/16/19 21:44 79 125/65 02/16/19 21:40 79 96 02/16/19 21:35 78 97 02/16/19 21:30 75 18 130/71 97 02/16/19 21:25 78 97 02/16/19 21:20 85 97 02/16/19 21:16 93 H 91 02/16/19 21:15 84 132/70 97 02/16/19 21:10 85 97 02/16/19 21:05 85 97 02/16/19 21:00 99.0 F 85 18 139/65 98 02/16/19 20:55 87 96 02/16/19 20:50 85 96 02/16/19 20:45 88 96 02/16/19 20:44 86 124/60 02/16/19 20:40 88 96 02/16/19 20:35 87 97 02/16/19 20:30 84 18 97 02/16/19 20:29 85 123/59 L 02/16/19 20:25 85 96 02/16/19 20:20 84 96 02/16/19 20:15 82 97 02/16/19 20:14 81 123/57 L 02/16/19 20:10 85 97 02/16/19 20:05 87 97 02/16/19 20:00 80 18 97 02/16/19 19:59 83 132/60 02/16/19 19:55 83 97 02/16/19 19:50 86 96 02/16/19 19:45 83 97 02/16/19 19:44 77 128/61 02/16/19 19:40 89 97 02/16/19 19:35 85 97 02/16/19 19:30 83 18 141/86 H 97 02/16/19 19:25 88 97 02/16/19 19:20 93 H 97 02/16/19 19:15 88 97 02/16/19 19:14 86 137/73 02/16/19 19:10 89 98 02/16/19 19:05 99.0 F 91 H 18 97 02/16/19 19:00 81 139/74 98 02/16/19 18:55 86 97 02/16/19 18:50 83 97 02/16/19 18:45 90 138/69 98 02/16/19 18:40 86 98 02/16/19 18:35 95 H 99 02/16/19 18:32 72 150/68 H 02/16/19 18:30 76 98 02/16/19 18:25 90 98 02/16/19 18:20 85 98 02/16/19 18:15 83 98 02/16/19 18:14 98.6 F 77 18 110/59 L 02/16/19 18:10 83 98 02/16/19 18:05 79 98 02/16/19 18:00 70 16 98 02/16/19 17:59 75 120/56 L 02/16/19 17:55 79 97 02/16/19 17:50 83 97 02/16/19 17:45 81 98 02/16/19 17:44 76 119/58 L 02/16/19 17:40 77 97 02/16/19 17:35 78 97 02/16/19 17:30 80 98 02/16/19 17:29 75 114/56 L 02/16/19 17:25 71 98 02/16/19 17:20 80 97 02/16/19 17:15 78 99 02/16/19 17:14 79 123/59 L 02/16/19 17:10 75 96 02/16/19 17:05 81 97 02/16/19 17:00 81 126/61 97 02/16/19 16:55 83 97 02/16/19 16:50 85 98 02/16/19 16:49 88 94 02/16/19 16:45 73 98 02/16/19 16:44 73 118/59 L 02/16/19 16:40 87 99 02/16/19 16:35 78 97 02/16/19 16:30 86 98 02/16/19 16:29 85 123/58 L 02/16/19 16:25 75 98 02/16/19 16:20 82 98 02/16/19 16:15 87 98 02/16/19 16:14 88 123/60 02/16/19 16:10 91 H 97 02/16/19 16:05 87 98 02/16/19 16:01 85 118/56 L 02/16/19 16:00 84 98 02/16/19 15:57 99.0 F 18 02/16/19 15:55 86 98 02/16/19 15:50 77 98 02/16/19 15:45 78 131/68 98 02/16/19 15:40 77 97 02/16/19 15:35 82 97 02/16/19 15:30 81 97 02/16/19 15:29 78 133/66 02/16/19 15:25 81 97 02/16/19 15:20 86 97 02/16/19 15:15 82 97 02/16/19 15:14 80 130/64 02/16/19 15:10 84 97 02/16/19 15:05 76 97 02/16/19 15:00 83 135/68 97 02/16/19 14:55 85 97 02/16/19 14:50 85 97 02/16/19 14:45 80 97 02/16/19 14:44 80 143/69 H 02/16/19 14:40 81 97 02/16/19 14:35 92 H 97 02/16/19 14:34 98.8 F 18 02/16/19 14:30 87 98 02/16/19 14:29 77 141/66 H 02/16/19 14:25 96 H 97 02/16/19 14:20 81 98 02/16/19 14:15 86 97 02/16/19 14:14 85 139/65 02/16/19 14:10 83 97 02/16/19 14:05 86 97 02/16/19 14:00 80 97 02/16/19 13:59 83 140/65 02/16/19 13:55 93 H 97 02/16/19 13:50 90 97 02/16/19 13:45 87 97 02/16/19 13:44 93 H 147/79 H 02/16/19 13:40 80 98 02/16/19 13:35 78 97 02/16/19 13:30 90 97 02/16/19 13:29 95 H 135/73 02/16/19 13:25 84 97 02/16/19 13:20 85 97 02/16/19 13:15 73 97 02/16/19 13:14 78 134/65 02/16/19 13:10 87 98 02/16/19 13:05 88 96 02/16/19 13:00 92 H 97 02/16/19 12:59 86 111/56 L 02/16/19 12:55 96 H 97 02/16/19 12:50 83 98 02/16/19 12:45 85 146/67 H 97 02/16/19 12:40 89 96 02/16/19 12:35 90 97 02/16/19 12:30 92 H 97 02/16/19 12:29 82 142/66 H 02/16/19 12:25 88 98
[2019-02-17] MEDS ORDERED: CITRIC ACID/SODIUM CITRATE 15 ML UDC PO ONE (00:30)
[2019-02-17] MEDS ORDERED: CEFAZOLIN 3000MG 65 ML IV ONE (00:30)
--- NOTE | 2019-02-17 01:15 | Delivery Summary ---
Vaginal Delivery Summary Date of Service February 17, 2019 Patient had a worrisome heart rate pattern in the next he planned on section however during preparation the patient did experience some rapid cervical dilatation in fact improved to approximately 9 cm she was able to push the cervical lip away and then actually descended baby quite quickly delivered a baby in occiput anterior position clear fluid mouth and then nares were suctioned gentle traction on the baby there was a body cord around the baby but this was loose live vigorous infant cord clamped and cut cord gases obtained cord blood obtained placenta removed with traction IV Pitocin started small periclitoral tear repaired with 4-0 Vicryl this was more superior to the urethra and posterior to the clitoris and no way was at near the urethral opening. Sponge and instrument counts correct estimate of blood loss 250 mL In summary again patient had been consented for due to a nonreassuring heart rate tracing however it made some rapid progress during the process and setting up for and was able to successfully deliver vaginally
[2019-02-17] MEDS ORDERED: DIPHTHERIA/TETANUS/PERTUSSIS 0.5 ML SYR/VIAL IM ONE (01:25)
[2019-02-17] MEDS ORDERED: SUPERCREAM 0.870% 15 GM JAR EXT PRN (01:25)
[2019-02-17] MEDS ORDERED: HYDROCORTISONE ACETATE 25 MG SUPP PR PRN (01:25)
[2019-02-17] MEDS ORDERED: BISACODYL 10 MG SUPP PR PRN (01:25)
[2019-02-17] MEDS ORDERED: BENZOCAINE 20% AER SPR 82.5 GM CAN EXT PRN (01:25)
[2019-02-17] MEDS ORDERED: OXYTOCIN 30 UNITS/500 ML BAG IV PRN (01:25)
[2019-02-17] MEDS ORDERED: ACETAMINOPHEN 325 MG TAB PO PRN (01:25)
[2019-02-17] MEDS ORDERED: OXYCODONE/ACETAMINOPHEN 5mg/325mg TAB PO PRN (01:25)
[2019-02-17 01:42] LABS: Base Excess Cord Venous Blood -5.1 mEq/L (-7.7-1.9); Cord Venous Blood HCO3 19 mmol/L (18.4-26.8); Cord Venous Blood PCO2 34 mmHg (30.4-57.2); Cord Venous Blood PO2 40 mmHg (14.1-43.3); Cord Venous Blood pH 7.36 (7.20-7.44)
--- NOTE | 2019-02-17 01:44 | Anesthesia Procedure Note ---
Date of Service February 17, 2019 Anesthesia Post Epidural Note Vital Signs Vital Signs: Temp Pulse Resp BP Pulse Ox 37.2 C 91 H 18 129/59 L 100 02/16/19 21:00 02/17/19 01:33 02/17/19 01:30 02/17/19 01:33 02/17/19 01:00 Pain Intensity Lower Abdomen: Pain Intensity: 0 Notes Mental Status: alert / awake / arousable and participated in evaluation Nausea / Vomiting: adequately controlled Pain: adequately controlled Airway Patency, RR, SpO2: stable & adequate BP & HR: stable & adequate Hydration State: stable & adequate Neuraxial Anesthesia: was administered and sensory block is resolving Anesthetic Complications: no major complications apparent and Pt Satisfied with anesthetic care Epidural: Removed without complications and With tip intact Notes: Epidural site clean, dry and intact. No signs of edema, erythema or bruising at insertion site. Pt instructed to request anesthesia if she has residual lower extremity numbness or if she develops lower extremity pain or weakness, back pain or headache.
[2019-02-17 01:47] LABS: Base Excess Cord Arterial Bld -4.9 mEq/L (-9-1.8); CO2 Cord Arterial Blood 39 mmHg (39.1-73.5); HCO3 Cord Arterial Blood 20 mmol/L (19.7-28.5); pH Cord Arterial Blood 7.34 (7.1-7.38)
[2019-02-17] MEDS: IBUPROFEN 600 MG TAB PO PRN ×4 (03:28→18:18)
[2019-02-17] MEDS: DOCUSATE SODIUM 100 MG CAP PO SCH ×2 (07:50→21:09)
[2019-02-17] MEDS: PRENATAL VITAMIN 1 TAB PO SCH (07:50)
[2019-02-17] MEDS ORDERED: NON-FORMULARY MEDICATION (Pnv Cmb#95-Ferrous Fumarate-Fa [Prenatal] 1 TAB) PO SCH (09:00)
[2019-02-18] MEDS: IBUPROFEN 600 MG TAB PO PRN (00:08)
[2019-02-18 07:13] LABS: Hematocrit (blood only) 30.3 % (37-47); Hemoglobin 9.9 g/dL (12.0-16.0); Mean Corpuscular Hemoglobin 27.3 pg (25-34); Mean Corpuscular Hgb Conc 32.7 g/dL (32-36); Mean Corpuscular Volume 83.7 fL (80-100); Mean Platelet Volume 11.4 fL (7.4-10.4); Platelet Count 205 K/uL (130-400); RDW Coefficient of Variation 14.9 % (11.5-14.5); RDW Standard Deviation 46.1 fL (36.4-46.3); Red Blood Count 3.62 M/uL (4.2-5.4); White Blood Count 11.51 K/uL (4.8-10.8)
[2019-02-18] MEDS: PRENATAL VITAMIN 1 TAB PO SCH (07:42)
[2019-02-18] MEDS: DOCUSATE SODIUM 100 MG CAP PO SCH (07:42)
--- NOTE | 2019-02-18 08:57 | Obstetrical Progress Note ---
Date of Service February 18, 2019 Assessment & Plan (1) care and examination: Post day 1 from [facility]. Doing well Patient doing well. Routine care Stable for discharge Day #:: 1 Subjective Ambulation: ambulating normally Voiding: no voiding problems Passing Gas:: Yes Diet Tolerance:: regular diet Lochia:: Moderate Feeding Type:: breast feeding Physical Exam Gastrointestinal (Abdomen) Inspection/Auscultation: abdomen normal to inspection Percussion/Palpation: abdomen soft; abdomen nontender, no guarding and abdomen not rigid Genitourinary OB Exam Abdomen: + fundal height Fundus: + firm, + tender and + relation to umbilicus (Below); not boggy Results & Data Vital Signs (Past 12 Hours) Vital Signs Temp Pulse Resp BP Pulse Ox 02/18/19 00:00 36.6 C 83 18 130/81 98
[2019-02-18] MEDS ORDERED: BISACODYL 5 MG TABEC PO SCH (20:00)
== END 2019-02-18 16:15 | disposition home or self-care (01) | DRG 807 ==
LOC: 4S1 05:31 → EDSTATUS 10:05 → 4S2 02-17 04:02

== ENCOUNTER 2021-09-18 10:02 | Inpatient (IN) ==
[2021-09-18] MEDS ORDERED: OXYTOCIN 30 UNITS/500 ML BAG IV PRN ×3 (10:28→23:37)
[2021-09-18] MEDS: LACTATED RINGER'S 1,000 ML IV PRN ×3 (10:30→22:01)
--- NOTE | 2021-09-18 10:35 | History & Physical Report ---
Date of Service September 18, 2021 Assessment & Plan (1) 40 weeks gestation of : (2) Group B streptococcal infection during : Plan: Begin pitocin induction. pcn for gbs + status. epidural on demand, arom as indicated. anticipate , fetus category one. Admission and Anticipated Discharge Date Admission Date: September 18, 2021 History of Present Illness Chief Complaint: induction Primary Care Provider: NO PCP Patient is a 30yowf with iup at 40 1/7 weeks who presents to labor and delivery for elective induction of labor. has been uncomplicated. +fm. no lof/vb. some intermittent contractions. and Delivery Plans History of induced hypertension x1 start baby asa 12 weeks baseline 24 hour urine--254 mg Covid Moderna May GBS positive in urine *treat in labor Flu shot given 03/31/21 SB Rh neg Rhogam given 07/02/21 SB OB Labs: Blood Type O Negative 02/12/21 Antibody Screen NEGATIVE 07/02/21 Hemoglobin 11.6 g/dL (12.0-16.0) L 07/02/21 Hematocrit 36.0 % (37-47) L 07/02/21 Mean Corpuscular Volume 85.9 fL (80-100) 02/12/21 Platelet Count 296 K/uL (130-400) 02/12/21 Rubella IgG Antibody Immune (Immune) 02/12/21 Rapid Plasma Reagin Nonreactive (Nonreactive) 02/13/21 Hepatitis B Surface Antigen Neg (Neg) 02/12/21 HIV (1&2) Ab and P24 Ag, 4th Gener Neg (Neg) 02/12/21 Glucose 1 Hour 50 gm Load 110 mg/dl (70-130) 07/02/21 Maternal Serum Alpha Fetoprotein 9.1 NG/ML 09/07/18 OB Optional Labs: Chlamydia trachomatis RNA NOT DETECTED (NOT DETECTED) 02/12/21 Neisseria gonorrhoeae RNA NOT DETECTED (NOT DETECTED) 02/12/21 Alpha Fetoprotein Triple Screen SEE NOTE 09/07/18 Labs Reviewed: declines cf/sma/genetics--akh gbs positive in urine. Allergies Allergy/AdvReac Type Severity Reaction Status Date / Time No Known Allergies Allergy Verified 09/17/21 10:05 Home Medications Medication Instructions Recorded Confirmed Type vit no.95-ferrous 1 tab PO QAM 02/09/19 09/17/21 History fumarate 28 mg-folic acid 800 mcg tablet () aspirin 81 mg tablet,delayed 81 mg PO DAILY 03/31/21 09/17/21 History release (Adult Low Dose Aspirin) Patient History Medical History Elevated blood pressure affecting in third trimester, antepartum Encounter for pre-operative examination History of migraine headaches Non-reassuring status care and examination induced hypertension REASON FOR ASA DAILY Ultrasound recheck of pyelectasis, antepartum Surgical History S/P tonsillectomy S/P wisdom tooth extraction Family History Father Dyslipidemia Hypertension Grandmother Breast cancer age 75 Aunt Multiple gestation Grandfather (Paternal) Family history of diabetes mellitus Grandmother (Paternal) Family history of diabetes mellitus Denies family history of Ovarian cancer Prostate cancer Colorectal cancer Social History Smoking Status: Never smoker Second Hand Exposure: No; Hx Alcohol Use: No Hx Substance Use: No Preferred Language: Portuguese Communication Ability: Effective Visual Impairment: No Limitations Hearing Ability: Normal Crane Service Technician Required: No Beliefs That Will Affect Care: None marital status: Single marital status details: Jose Armando Houser (35) [phone] Current Living Situation: Family and Significant Other Current Living Situation Comment: Lives with FOB and kids. 1 dog 1 cat. 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
[2021-09-18] MEDS ORDERED: PENICILLIN G POTASSIUM 6 MU in DEXTROSE 5% 250 ML IV STA (10:37)
[2021-09-18 10:50] LABS: Hematocrit (blood only) 34.9 % (37-47); Hemoglobin 11.7 g/dL (12.0-16.0); Mean Corpuscular Hgb Conc 33.5 g/dL (32-36); Mean Corpuscular Volume 83.5 fL (80-100); Mean Platelet Volume 11.6 fL (7.4-10.4); Platelet Count 243 K/uL (130-400); RDW Coefficient of Variation 15.2 % (11.5-14.5); RDW Standard Deviation 46.6 fL (36.4-46.3); Red Blood Count 4.18 M/uL (4.2-5.4)
--- NOTE | 2021-09-18 12:31 | Medical Student H&P ---
Date of Service September 18, 2021 Assessment & Plan (1) 40 weeks gestation of : Plan: Plan is to continue with pitocin drip, epidural PRN, amniotomy/AROM when indicated. Expect . (2) Group B streptococcal infection during : Plan: plan to administer intrapartum penicillin (3) History of induced hypertension: Plan: pt has been compliant with ASA 81mg since 12 weeks gestation. continue to monitor (4) Need for rhogam due to Rh negative mother: Plan: pt received rhogam on 07/02/21, result of Rh status will determine if she needs additional dose within 72 hours of delivery Plan: # assessment and plan: FHR tracing category I, continue to monitor Admission and Anticipated Discharge Date Admission Date: September 18, 2021 History of Present Illness Chief Complaint: scheduled induction of labor Primary Care Provider: SENAIT PCP Catarina is a 30 y/o woman presenting for scheduled IOL at 40 wk 1/7 days gestation measured by LMP of 12/11/20 consistent with first trimester US. During this pt sought routine course which has largely been uncomplicated. However, she has a hx of PIH during 1st which requires her to take ASA 81mg since 12 weeks gestation. Currently she appreciates good FM, no bleeding/loss of fluid, last contraction was noted on the evening of 09/17/21 and she has not had regular contractions since then. G1- term vaginal delivery, complicated by PIH G2- term vaginal delivery, uncomplicated Regarding her labs she was found to be GBS positive with a negative AB screen. 1 hr GTT were WNL on 03/31/21 (101) and 07/02/21 (110). See lab results below for more labs. 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 No hx of pumper gager surgeries. 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 No hx of EtOH use, recreational drug use, or tobacco use Allergies Allergy/AdvReac Type Severity Reaction Status Date / Time No Known Allergies Allergy Verified 09/17/21 10:05 Home Medications Medication Instructions Recorded Confirmed Type vit no.95-ferrous 1 tab PO QAM 02/09/19 09/18/21 History fumarate 28 mg-folic acid 800 mcg tablet () aspirin 81 mg tablet,delayed 81 mg PO DAILY 03/31/21 09/18/21 History release (Adult Low Dose Aspirin) Patient History Medical History Elevated blood pressure affecting in third trimester, antepartum Encounter for pre-operative examination History of migraine headaches Non-reassuring status care and examination induced hypertension REASON FOR ASA DAILY Ultrasound recheck of pyelectasis, antepartum Surgical History S/P tonsillectomy S/P wisdom tooth extraction Family History Father Dyslipidemia Hypertension Grandmother Breast cancer age 75 Aunt Multiple gestation Grandfather (Paternal) Family history of diabetes mellitus Grandmother (Paternal) Family history of diabetes mellitus Denies family history of Ovarian cancer Prostate cancer Colorectal cancer Social History Smoking Status: Never smoker Second Hand Exposure: No; Hx Alcohol Use: No Hx Substance Use: No Preferred Language: Kuwaiti Communication Ability: Effective Visual Impairment: No Limitations Hearing Ability: Normal 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 1 dog 1 cat. 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 No pain with palpation to calf and no pain with dorsiflexion BL. Monitoring External Monitor baseline 140s, mod variability, accels to 160s, no decels Tocodynamometer irregular contractions noted Results & Data ([facility]) Vital Signs (Past 12 Hours) Vital Signs Temp Pulse Resp BP 09/18/21 11:11 86 135/77 09/18/21 10:05 37.1 C 78 20 130/76 Laboratory Results Lab Results OB Labs: F Blood Type O Negative 02/12/21 Antibody Screen NEGATIVE 07/02/21 Hemoglobin 11.6 g/dL (12.0-16.0) L 07/02/21 Hematocrit 36.0 % (37-47) L 07/02/21 Mean Corpuscular Volume 85.9 fL (80-100) 02/12/21 Platelet Count 296 K/uL (130-400) 02/12/21 Rubella IgG Antibody Immune (Immune) 02/12/21 Rapid Plasma Reagin Nonreactive (Nonreactive) 02/13/21 Hepatitis B Surface Antigen Neg (Neg) 02/12/21 HIV (1&2) Ab and P24 Ag, 4th Gener Neg (Neg) 02/12/21 Glucose 1 Hour 50 gm Load 110 mg/dl (70-130) 07/02/21 Maternal Serum Alpha Fetoprotein 9.1 NG/ML 09/07/18 OB Optional Labs: Chlamydia trachomatis RNA NOT DETECTED (NOT DETECTED) 02/12/21 Neisseria gonorrhoeae RNA NOT DETECTED (NOT DETECTED) 02/12/21 Alpha Fetoprotein Triple Screen SEE NOTEB 09/07/18 Labs Reviewed: declines cf/sma/genetics--akh gbs positive in urine. AFP Triple screen negative
[2021-09-18] MEDS: PENICILLIN G POTASSIUM 3 MU in DEXTROSE 5% 100 ML IV PRN ×2 (15:08→18:58)
--- NOTE | 2021-09-18 15:45 | Labor Progress Brief Note ---
Date of Service September 18, 2021 Subjective notes pain of a 2 Assessment & Plan (1) 40 weeks gestation of : Plan: arom, continue current management. fetus category one. Admission and Anticipated Discharge Date Admission Date: September 18, 2021 Physical Exam Physical Exam: cx--50/-2 arom--clear toco--q2-3, pit at 16 efm--130s with mod variability, accels to 150s, no decels Results & Data ([facility]) Vital Signs (Past 12 Hours) Vital Signs Temp Pulse Resp BP 09/18/21 15:03 36.9 C 20 09/18/21 15:02 83 143/86 H 09/18/21 13:59 85 157/94 H 09/18/21 13:03 36.6 C 09/18/21 13:00 36.6 C 09/18/21 12:36 70 157/90 H 09/18/21 12:31 91 H 167/86 H 09/18/21 11:11 86 135/77 09/18/21 10:05 37.1 C 78 20 130/76 Coding Level of Care Code None Diagnoses 40 weeks gestation of Z3A.40
--- NOTE | 2021-09-18 19:11 | Labor Progress Brief Note ---
Date of Service September 18, 2021 Subjective starting to get uncomfortable Assessment & Plan (1) 40 weeks gestation of : Plan: will get epidural. suspect that she is on the verge of active labor. fetus category one. Admission and Anticipated Discharge Date Admission Date: September 18, 2021 Physical Exam Physical Exam: cx--4+/75/-2 toco--q 2-3, pit at 22 efm--130s wtih mod variability, accels to 150s, no decels Results & Data ([facility]) Vital Signs (Past 12 Hours) Vital Signs Temp Pulse Resp BP 09/18/21 19:01 83 160/89 H 09/18/21 17:41 36.7 C 18 09/18/21 17:39 87 144/91 H 09/18/21 16:33 85 146/88 H 09/18/21 15:42 36.9 C 20 09/18/21 15:03 36.9 C 20 09/18/21 15:02 83 143/86 H 09/18/21 13:59 85 157/94 H 09/18/21 13:03 36.6 C 09/18/21 13:00 36.6 C 09/18/21 12:36 70 157/90 H 09/18/21 12:31 91 H 167/86 H 09/18/21 11:11 86 135/77 09/18/21 10:05 37.1 C 78 20 130/76 Coding Level of Care Code None Diagnoses 40 weeks gestation of Z3A.40
[2021-09-18] MEDS ORDERED: ePHEDrine sulfate 50 MG/ML AMP ONE (19:15)
[2021-09-18] MEDS ORDERED: SODIUM CHLORIDE 0.9% INJ 10 ML VIAL ONE (19:15)
[2021-09-18] MEDS ORDERED: fentaNYL 2MCG/ML ROPIVACAINE 1.25MG/ML 100 ML BAG EPI ONE (19:15)
[2021-09-18] MEDS ORDERED: BUPIVACAINE 0.25% 30 ML VIAL ONE (19:15)
[2021-09-18] MEDS ORDERED: fentaNYL citrate 100 MCG/2 ML VIAL ONE (19:15)
[2021-09-18] MEDS ORDERED: diphenhydrAMINE 50 MG/ML VIAL IV PRN (19:42)
[2021-09-18] MEDS ORDERED: ONDANSETRON INJ 2 MG/ML 2 ML VIAL IV PRN (19:42)
[2021-09-18] MEDS ORDERED: ePHEDrine sulfate 50 MG/ML AMP IV PRN (19:42)
[2021-09-18] MEDS ORDERED: fentaNYL 2MCG/ML ROPIVACAINE 1.25MG/ML 100 ML BAG EPI PRN (19:42)
[2021-09-18] MEDS ORDERED: NALBUPHINE HCL INJ 10 MG/ML AMP IV PRN (19:42)
[2021-09-18] MEDS ORDERED: NALOXONE HCL 1 MG in SODIUM CHLORIDE 0.9% 1000ML 1,000 ML IV PRN (19:42)
[2021-09-18] MEDS ORDERED: NALOXONE HCL 0.4 MG/1 ML VIAL/CARP IV PRN (19:42)
--- NOTE | 2021-09-18 19:45 | Anesthesiology Consultation ---
Date of Service September 18, 2021 Assessment & Plan Chart Review Chart Review: Patient NOT seen in Pre Admission Testing and Acceptable Risk for Labor Epidural Consults Requested none ASA ASA2 Proposed Anesthesia Anesthesia Type: Labor Epidural and CSE Risk / Benefits Reviewed With: PT / POA / Parent / Guardian, Accepts Plan and Informed Consent Obtained History Height/Weight Height: 5 ft 10 in Weight: 117.027 kg Allergies Allergy/AdvReac Type Severity Reaction Status Date / Time No Known Allergies Allergy Verified 09/17/21 10:05 Medications Home Medications Medication Instructions Recorded Confirmed Last Taken vit no.95-ferrous 1 tab PO QAM 02/09/19 09/18/21 09/18/21 08:00 fumarate 28 mg-folic acid 800 mcg 1 tab tablet () aspirin 81 mg tablet,delayed 81 mg PO DAILY 03/31/21 09/18/21 09/18/21 08:00 release (Adult Low Dose Aspirin) 81 mg Active Medications Generic Name Dose Route Start Last Admin Trade Name Freq PRN Reason Stop Dose Admin Lactated Ringer's 1,000 mls @ 125 mls/hr 09/18/21 10:40 09/18/21 17:40 Lr IV 09/20/21 10:39 125 mls/hr .Q8H PRN Administration L&D Protocol Protocol Penicillin G Potassium 3 mu/ 106 mls @ 100 mls/hr 09/18/21 13:30 09/18/21 18:58 Dextrose IV 09/28/21 13:29 100 mls/hr Q4H PRN Administration GBS(+) Until Delivery Oxytocin 30 units in 500 mls @ 22 mls/hr 09/18/21 11:19 09/18/21 17:15 Pitocin IV 09/20/21 11:18 1.32 units/hr .[id number] PRN 22 mls/hr Labor Induction/Augmentation Titration Protocol 1.32 UNITS/HR NPO Date Last Intake of Fluids: 09/18/21 Time Last Intake of Fluids: 18:00 Date Last Intake of Solids: 09/18/21 Time Last Intake of Solids: 08:00 Past Medical History Medical History Elevated blood pressure affecting in third trimester, antepartum Encounter for pre-operative examination History of migraine headaches Non-reassuring status care and examination induced hypertension REASON FOR ASA DAILY Ultrasound recheck of pyelectasis, antepartum Exercise / Class Metabolic Activity II 4-5 Yardwork/Stairs/Walk up hill Past Family History Family History Father Dyslipidemia Hypertension Grandmother Breast cancer age 75 Aunt Multiple gestation Grandfather (Paternal) Family history of diabetes mellitus Grandmother (Paternal) Family history of diabetes mellitus Denies family history of Ovarian cancer Prostate cancer Colorectal cancer Past Surgical History Surgical History S/P tonsillectomy S/P wisdom tooth extraction Past Anesthesia History No Hx of Anesthesia Complications and No Family Hx of Anesthesia Complications History of PONV No Hx of PONV and No Hx of Motion Sickness Social History Smoking Status: Never smoker Hx Alcohol Use: No Hx Substance Use: No substance use type: does not use Review of Systems no chest pain or sob Physical Exam Vital Signs Last Vital Signs Temp 36.7 C 09/18/21 17:41 Pulse 83 09/18/21 19:41 Resp 18 09/18/21 19:00 BP 160/89 H 09/18/21 19:01 Pulse Ox 98 09/18/21 19:41 ENMT Mouth: no TMJ abnormality Thyromental Distance: > or= 3.5 Finger Breadths Mallampati Class: II Neck normal visual inspection Respiratory normal respiratory effort Auscultation: lungs clear to auscultation bilaterally Cardiovascular Rate/Rhythm: regular rate and regular rhythm Musculoskeletal Spine: normal cervical ROM Neurologic moves all extremities Psychiatric Orientation: alert and oriented x 3 Testing Laboratory Results 09/18/21 10:42
[2021-09-18] MEDS ORDERED: HYDROCORTISONE ACETATE 25 MG SUPP PR PRN (23:37)
[2021-09-18] MEDS ORDERED: DIPHTHERIA/TETANUS/PERTUSSIS 0.5 ML SYR/VIAL IM ONE (23:37)
[2021-09-18] MEDS ORDERED: BENZOCAINE 20% AER SPR 82.5 GM CAN EXT PRN (23:37)
[2021-09-18] MEDS ORDERED: ACETAMINOPHEN 325 MG TAB PO PRN (23:37)
[2021-09-18] MEDS ORDERED: oxyCODONE/ACETAMINOPHEN 5mg/325mg TAB PO PRN (23:37)
--- NOTE | 2021-09-18 23:40 | Delivery Summary ---
Vaginal Delivery Summary Date of Service September 18, 2021 Vaginal Delivery Summary Pre-operative Diagnosis: at 40 weeks Post-operative Diagnosis: same Procedure: pitocin induction arom epidural EBL: 300cc Anesthesia: epidural Procedure: The patient pushed for 2 contractions to deliver a viable female in jenn position. The nose and mouth were bulb suctioned on the perineum and the rest of the infant was then delivered without difficulty. The baby was vigorous. The nose and mouth were again bulb suctioned and the infant was placed in the maternal abdomen for drying and attention. Cord was clamped and cut at 1.5 min of life. Cord blood and segment obtained. Placenta delivered spontaneous, intact with a three vessel cord. Cervix/sulci/rectum/perineum were intact. Hemostasis obtained with dilute pitocin and fundal massage. Apgars were 8/9. Mother and baby doing well at the end of the delivery. [facility] Vaginal Delivery Charge Delivery Type Details: [facility]
--- NOTE | 2021-09-19 00:10 | Anesthesia Procedure Note ---
Date of Service September 19, 2021 Anesthesia Post Epidural Note Vital Signs Vital Signs: Temp Pulse Resp BP Pulse Ox 36.8 C 83 18 144/65 H 92 09/18/21 22:00 09/18/21 23:56 09/18/21 23:55 09/18/21 23:56 09/18/21 23:31 Pain Intensity Anterior Abdomen: Pain Intensity: 0 Notes Mental Status: alert / awake / arousable and participated in evaluation Nausea / Vomiting: adequately controlled Pain: adequately controlled Airway Patency, RR, SpO2: stable & adequate BP & HR: stable & adequate Hydration State: stable & adequate Neuraxial Anesthesia: was administered and sensory block is resolving Anesthetic Complications: no major complications apparent and Pt Satisfied with anesthetic care Epidural: Removed without complications and With tip intact
[2021-09-19] MEDS: IBUPROFEN 600 MG TAB PO PRN ×2 (05:07→09:03)
--- NOTE | 2021-09-19 07:17 | Obstetrical Progress Note ---
Date of Service <Fuad Hale MD - Last Filed: 09/19/21 07:17> September 19, 2021 Assessment & Plan <Fuad Hale MD - Last Filed: 09/19/21 07:17> (1) Encounter for care and examination after delivery: PPD 1: stable, routine management * patient voiding and ambulating without difficulty * pain well controlled on analgesia * tolerating regular diet * * observe on L&D floor today * reassess d/c readiness tomorrow <Quyen Glez MD, FACOG - Last Filed: 09/19/21 08:01> (1) Encounter for care and examination after delivery: Subjective <Fuad Hale MD - Last Filed: 09/19/21 07:17> Catarina is a 30 y/o who is now PPD 1 following spontaneous vaginal delivery at 40.1 weeks. Reports minimal cramping pain well managed on analgesics. Voiding well. Tolerating meals well and able to ambulate on her own. 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 . Review of Systems Denies fever, chills, sweats Denies shortness of breath, difficulty breathing, chest pain, palpitations, chest pressure. Denies breast pain. Denies dysuria. Denies headache or changes in vision. Physical Exam <Fuad Hale MD - Last Filed: 09/19/21 07:17> General: Alert, oriented. No acute distress. Cardiac: Regular rate and rhythm, no murmurs/rubs/gallops. Respiratory: Clear to auscultation bilaterally a/p, no wheezes/rales/rhonchi. No increased work of breathing. Symmetrical chest rise. No respiratory distress. Abdomen: Soft, nontender, nondistended. Bowel sounds present. Uterus: Uterine fundus firm, palpable 5 cm below umbilicus. Lower Extremities: No lower extremity edema or swelling. No deep calf pain. Tiana's negative bilaterally.. Results & Data ([facility]) <Fuad Hale MD - Last Filed: 09/19/21 07:17> Vital Signs (Past 12 Hours) Vital Signs Temp Pulse Pulse Resp BP BP Pulse Ox 09/19/21 05:00 36.7 C 80 18 124/66 09/19/21 02:00 36.7 C 84 20 130/86 09/19/21 01:40 90 18 143/68 H 09/19/21 01:37 90 143/68 H 09/19/21 01:26 106 H 136/66 09/19/21 01:11 88 145/69 H 09/19/21 01:10 88 18 145/69 H 09/19/21 00:56 82 136/78 09/19/21 00:42 85 136/74 09/19/21 00:40 85 18 136/74 09/19/21 00:26 82 137/65 09/19/21 00:25 85 18 136/74 09/19/21 00:11 80 149/85 H 09/19/21 00:10 83 18 144/65 H 09/18/21 23:56 83 144/65 H 09/18/21 23:55 83 18 144/65 H 09/18/21 23:41 85 140/67 09/18/21 23:40 83 18 144/65 H 09/18/21 23:31 83 92 09/18/21 23:26 95 H 94 09/18/21 23:21 80 97 09/18/21 23:19 80 94 09/18/21 23:16 79 97 09/18/21 23:11 84 96 09/18/21 23:06 84 95 09/18/21 23:01 80 143/76 H 94 09/18/21 23:00 18 09/18/21 22:57 78 94 09/18/21 22:56 84 95 09/18/21 22:52 83 94 09/18/21 22:51 86 94 09/18/21 22:47 78 155/79 H 09/18/21 22:46 86 95 09/18/21 22:44 79 94 09/18/21 22:41 80 96 09/18/21 22:39 83 94 09/18/21 22:36 88 94 09/18/21 22:34 80 94 09/18/21 22:31 82 147/85 H 94 09/18/21 22:30 18 09/18/21 22:28 80 94 09/18/21 22:26 81 94 09/18/21 22:22 104 H 91 09/18/21 22:21 100 H 96 09/18/21 22:16 82 124/74 97 09/18/21 22:11 84 96 09/18/21 22:06 83 96 09/18/21 22:01 87 129/78 97 09/18/21 22:00 36.8 C 18 09/18/21 21:56 82 97 09/18/21 21:52 73 94 09/18/21 21:51 72 95 09/18/21 21:47 65 111/55 L 09/18/21 21:46 65 95 09/18/21 21:45 80 94 09/18/21 21:41 82 95 09/18/21 21:39 87 94 09/18/21 21:36 78 94 09/18/21 21:34 74 94 09/18/21 21:31 74 93 09/18/21 21:30 76 18 106/55 L 09/18/21 21:27 82 94 09/18/21 21:26 67 95 09/18/21 21:21 75 93 09/18/21 21:19 76 93 09/18/21 21:17 68 118/59 L 09/18/21 21:16 76 97 09/18/21 21:11 73 94 09/18/21 21:06 79 94 09/18/21 21:02 75 118/57 L 09/18/21 21:01 73 95 09/18/21 21:00 74 18 93 09/18/21 20:56 75 96 09/18/21 20:53 76 93 09/18/21 20:51 76 96 09/18/21 20:46 71 126/62 95 09/18/21 20:45 82 92 09/18/21 20:41 75 97 09/18/21 20:36 93 H 94 09/18/21 20:33 78 94 09/18/21 20:31 73 95 09/18/21 20:30 36.7 C 96 H 18 118/60 09/18/21 20:27 85 117/60 09/18/21 20:26 74 94 09/18/21 20:22 77 128/58 L 09/18/21 20:21 75 95 09/18/21 20:16 84 121/63 95 09/18/21 20:15 18 09/18/21 20:11 80 95 09/18/21 20:10 73 18 124/59 L 09/18/21 20:08 81 134/63 09/18/21 20:06 82 139/65 97 09/18/21 20:05 18 09/18/21 20:04 80 127/61 09/18/21 20:02 78 135/65 09/18/21 20:01 83 96 09/18/21 20:00 18 09/18/21 19:56 89 98 09/18/21 19:51 90 98 09/18/21 19:46 102 H 99 09/18/21 19:41 83 98 09/18/21 19:36 83 98 09/18/21 19:31 78 98 09/18/21 19:26 80 98 09/18/21 19:21 78 99 <Quyen Glez MD, FACOG - Last Filed: 09/19/21 08:01> Co-Signing Physician Notes Resident Physician Supervision Note: I interviewed and examined the patient. Discussed with Dr. Hale and agree with findings and plan as documented in the note. Any exceptions or cl arifications are listed here: Doing very well. routine care. May want to go home late tonight at 24 hours. d/c instructions given. Documented By: Quyen Glez MD, FACOG Resident Activity Tracking <Fuad Hale MD - Last Filed: 09/19/21 07:17> Resident Involvement: Resident Care Provided Care Provided: OB Delivery
[2021-09-19 07:21] LABS: Hematocrit (blood only) 34.8 % (37-47); Hemoglobin 11.5 g/dL (12.0-16.0)
[2021-09-19] MEDS ORDERED: PRENATAL VITAMIN 1 TAB PO SCH (08:00)
[2021-09-19] MEDS: DOCUSATE SODIUM 100 MG CAP PO SCH ×2 (09:03→19:37)
[2021-09-19] MEDS ORDERED: bisacodyL 5 MG TABEC PO SCH (20:00)
[2021-09-20] MEDS ORDERED: bisacodyL 10 MG SUPP PR PRN
== END 2021-09-20 00:15 | disposition home or self-care (01) | DRG 807 ==
LOC: 4S1 10:02 → 4E2 09-19 02:18

== ENCOUNTER 2024-05-22 07:31 | Inpatient (IN) ==
[2024-05-22] MEDS ORDERED: LIDOCAINE 1% LOCAL 20 ML VIAL INFIL PRN (07:36)
[2024-05-22 08:33] LABS: Hematocrit (blood only) 36.4 % (37.0-47.0); Hemoglobin 12.1 g/dl (12.0-16.0); Mean Corpuscular Hemoglobin 28.3 pg (25.0-34.0); Mean Corpuscular Hgb Conc 33.2 g/dL (32.0-36.0); Mean Corpuscular Volume 85.2 fL (80.0-100.0); Mean Platelet Volume 12.1 fL (9.4-12.4); Platelet Count 232 K/uL (130-400); RDW Coefficient of Variation 14.9 % (11.5-14.5); RDW Standard Deviation 46.3 fL (36.4-46.3); Red Blood Count 4.27 M/uL (4.20-5.40); White Blood Count 10.32 K/ul (4.8-10.8)
[2024-05-22] MEDS: PENICILLIN GK 6 MU in SODIUM CHLORIDE 0.9% 250 ML IV STA (08:55)
[2024-05-22] MEDS: LACTATED RINGER'S 1,000 ML IV SCH (09:58)
[2024-05-22] MEDS: OXYTOCIN 30 UNITS/NSS 30 UNITS/500 ML BAG IV PRN (10:05)
--- NOTE | 2024-05-22 10:15 | History & Physical Report ---
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 Date GA wks Lbr Lgth wt Sex Type del Anes Place Del Prov ? Comment 03/15/15 40 8-15 F Epidural [facility] Dr Bre Argueta No induced Hypertension 02/17/19 39 7lb 10.2oz M Ep idural [facility] Trevon No 09/18/21 40 7-6 F Epidural [facility] Dr. Glez N Denies hx stis Allergies Allergy/AdvReac Type Severity Reaction Status Date / Time No Known Allergies Allergy Verified 05/22/24 08:21 Home Medications Medication Instructions Recorded Confirmed Type ferrous sulfate [Iron (ferrous PO .qod 03/29/24 05/21/24 History sulfate)] polyethylene glycol 3350 [Miralax] PO PRN Constipation 03/29/24 05/21/24 History vits no.124-ferrous fum 1 tab PO DAILY 05/22/24 05/22/24 History 27 mg iron-folic acid 800 mcg tablet ( Vitamin) Patient History Medical History History of chicken pox Encounter for pre-operative examination History of migraine headaches Surgical History S/P tonsillectomy S/P wisdom tooth extraction Family History Father Dyslipidemia Hypertension Grandmother Breast cancer age 75 Aunt Multiple gestation Grandfather (Paternal) Family history of diabetes mellitus Grandmother (Paternal) Family history of diabetes mellitus Denies family history of Ovarian cancer Prostate cancer Colorectal cancer Social History Smoking Status: Never smoker Second Hand Exposure: No; Do You Dip or Chew Tobacco: No; Hx Alcohol Use: No Hx Substance Use: No Preferred Language: Japanese Communication Ability: Effective Visual Impairment: No Limitations Hearing Ability: Normal Extension Professor Required: No Beliefs That Will Affect Care: None marital status: Single marital status details: Jose Armando Houser (39) [phone] Current Living Situation: Family and Significant Other Current Living Situation Comment: Significant Other: Jose ArmandoMikaela (9), Arellano (5), Rosita (2) current occupational status: 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 Other Information That Helps Us Care for You: No Feels Safe at Home: Yes Safety Concerns: Feels Safe At This Time Assistive Devices: None Physical Exam Genitourinary: OB Exam Abdomen: + vertex and + estimated weight (7-8) Manual OB Exam: + cervical dilation 1 cm, + cervical effacement 50% and + station -2 OB Exam Monitor Tracing: + external FHT monitor used, + external uterine monitor used (irreg) and + category I (125/mod/+accel/-decel) Results & Data Vital Signs (Past 12 Hours) Vital Signs Temp Pulse Resp BP 05/22/24 10:10 85 137/71 05/22/24 07:41 95 H 136/63 05/22/24 07:39 102 H 168/95 H 05/22/24 07:38 20 05/22/24 07:38 97.7 F 20 Laboratory Results OB Labs: Blood Type O Negative 10/12/23 Antibody Screen NEGATIVE 02/29/24 Hgb 12.0 g/dl (12.0-16.0) 05/02/24 Hct 35.7 % (37.0-47.0) L 05/02/24 MCV 84.4 fL (80.0-100.0) 05/02/24 Plt Count 237 K/uL (130-400) 05/02/24 Rubella IgG Antibody Immune (Immune) 10/12/23 RPR Nonreactive (Nonreactive) 10/12/23 Treponema pallidum Ab Negative (Negative) 02/29/24 Hep Bs Antigen Neg (Neg) 02/12/21 Hep Bs Antigen NON-REACTIVE (NON-REACTIVE) 10/12/23 Hepatitis C Ab (EIA) NON-REACTIVE (NON-REACTIVE) 10/12/23 HIV 1&2 Ab/P24 Ag 4thGn Neg (Neg) 02/12/21 HIV (1&2) Ag & Ab Conf NON-REACTIVE (NON-REACTIVE) 10/12/23 Glucose 1 Hr 50 gm 130 mg/dl (70-130) 02/29/24 Maternal Serum AFP 9.1 NG/ML 09/07/18 OB Optional Labs: Chlamydia trachomatis RNA Not Detected (NotDetected) 10/12/23 Neisseria gonorrhoeae RNA Not Detected (NotDetected) 10/12/23 Alpha Fetoprotein Triple Screen SEE NOTE 09/07/18 Labs Reviewed: Declines genetics--mln dclined qs/afp--akh gbs positive urine Diagnostic Findings post plac Coding Level of Care Code None Diagnoses Group beta Strep positive B95.1 Supervision of normal intrauterine in multigravida Z34.80
[2024-05-22] MEDS ORDERED: diphenhydrAMINE 50 MG/ML VIAL IV PRN (12:33)
[2024-05-22] MEDS ORDERED: BUPIVACAINE 0.25% PF 30 ML VIAL EPI PRN (12:33)
[2024-05-22] MEDS ORDERED: SODIUM CHLORIDE 0.9% PF INJ 10 ML VIAL EPI PRN (12:33)
[2024-05-22] MEDS ORDERED: ePHEDrine sulfate 50 MG/ML AMP IV PRN (12:33)
[2024-05-22] MEDS ORDERED: NALBUPHINE HCL INJ 10 MG/ML AMP IV PRN (12:33)
[2024-05-22] MEDS ORDERED: LIDOCAINE 2% MPF LOCAL 5 ML VIAL EPI PRN (12:33)
[2024-05-22] MEDS ORDERED: ROPIVACAINE 0.5% PF 5 MG/ML 20 ML VIAL EPI PRN (12:33)
[2024-05-22] MEDS ORDERED: NALOXONE HCL 0.4 MG/1 ML VIAL/CARP IV PRN (12:33)
[2024-05-22] MEDS ORDERED: NALOXONE HCL 1 MG in SODIUM CHLORIDE 0.9% 1,000 ML IV PRN (12:33)
[2024-05-22] MEDS ORDERED: fentaNYL citrate PF 100 MCG/2 ML VIAL EPI PRN (12:33)
--- NOTE | 2024-05-22 12:33 | Anesthesiology Consultation ---
Date of Service May 22, 2024 Assessment & Plan (1) Encounter for pre-operative examination: Chart Review Chart Review: Patient NOT seen in Pre Admission Testing and Acceptable Risk for Labor Epidural Consults Requested none History Height/Weight Height: 5 ft 10 in Weight: 123.831 kg Allergies Allergy/AdvReac Type Severity Reaction Status Date / Time No Known Allergies Allergy Verified 05/22/24 08:21 Medications Home Medications Medication Instructions Recorded Confirmed Last Taken ferrous sulfate [Iron (ferrous PO .qod 03/29/24 05/21/24 2 Days Ago sulfate)] ~05/20/24 polyethylene glycol 3350 [Miralax] PO PRN Constipation 03/29/24 05/21/24 2 Days Ago ~05/20/24 vits no.124-ferrous fum 1 tab PO DAILY 05/22/24 05/22/24 05/21/24 27 mg iron-folic acid 800 mcg tablet ( Vitamin) Active Medications Generic Name Dose Route Start Last Admin Trade Name Freq PRN Reason Stop Dose Admin Oxytocin 30 units in 500 mls @ 4 mls/hr 05/22/24 07:36 05/22/24 12:25 Pitocin 30 Units/Nss IV 05/24/24 07:35 0.24 units/hr .Q24H PRN 4 mls/hr Labor Induction/Augmentation Titration Protocol 0.24 UNITS/HR Lactated Ringer's 1,000 mls @ 50 mls/hr 05/22/24 10:45 05/22/24 12:07 Lr IV 05/23/24 10:44 999 mls/hr .Q20H JANA Infusion Past Medical History Medical History History of chicken pox Encounter for pre-operative examination History of migraine headaches Past Family History Family History Father Dyslipidemia Hypertension Grandmother Breast cancer age 75 Aunt Multiple gestation Grandfather (Paternal) Family history of diabetes mellitus Grandmother (Paternal) Family history of diabetes mellitus Denies family history of Ovarian cancer Prostate cancer Colorectal cancer Past Surgical History Surgical History S/P tonsillectomy S/P wisdom tooth extraction Social History Smoking Status: Never smoker Do You Dip or Chew Tobacco: No Hx Alcohol Use: No Hx Substance Use: No substance use type: does not use Physical Exam Vital Signs Last Vital Signs Temp 98.4 F 05/22/24 11:05 Pulse 119 H 05/22/24 12:31 Resp 18 05/22/24 11:05 BP 142/83 H 05/22/24 12:09 Pulse Ox 99 05/22/24 12:31 Testing Laboratory Results 05/22/24 07:48 Blood Type O Negative 05/22/24 07:48 Antibody Screen NEGATIVE 05/22/24 07:48
[2024-05-22] MEDS: fentANYL 2 MCG/ML BUPIVacaine 0.125%-NSS 100ML BAG EPI PRN (12:55)
[2024-05-22] MEDS: LIDOCAINE 2%/EPINEPHRINE 1:200,000 20 ML PF EPI STA (12:55)
[2024-05-22] MEDS: BUPIVACAINE 0.25% PF 30 ML VIAL EPI STA (12:55)
[2024-05-22] MEDS: PENICILLIN GK 3 MU in DEXTROSE 5% 100 ML IV PRN (13:01)
[2024-05-22] MEDS: fentaNYL citrate PF 100 MCG/2 ML VIAL ONE (13:19)
[2024-05-22] MEDS: fentANYL 2 MCG/ML BUPIVacaine 0.125%-NSS 100ML BAG ONE (13:19)
[2024-05-22] MEDS: BUPIVACAINE 0.25% PF 30 ML VIAL ONE (13:20)
[2024-05-22] MEDS: SODIUM CHLORIDE 0.9% PF INJ 10 ML VIAL ONE (13:20)
[2024-05-22] MEDS: LIDOCAINE 2%/EPINEPHRINE 1:200,000 20 ML PF ONE (13:20)
--- NOTE | 2024-05-22 14:27 | Labor Progress Brief Note ---
Date of Service May 22, [address] Assessment & Plan (1) Group beta Strep positive: (2) Supervision of normal intrauterine in multigravida: Plan 33 yo at 39 6/7 wga presents for IOL VSS Fetus cat 1 Labor - pit was halved to 4 due to tachysystole, now s/p arom GBS+, pcn ordered Epidural in place Admission and Anticipated Discharge Date Admission Date: May 22, 2024 Physical Exam Genitourinary: Manual OB Exam: + cervical dilation 3 cm, + cervical effacement 50%, + station -2 and + amniotic fluid (arom clear scant) OB Exam Monitor Tracing: + external FHT monitor used, + external uterine monitor used (3-4) and + category I (125/mod/+accel/-decel) Results & Data Vital Signs (Past 12 Hours) Vital Signs Temp Pulse Resp BP Pulse Ox 05/22/24 14:26 75 99 05/22/24 14:21 75 98 05/22/24 14:19 73 143/78 H 05/22/24 14:16 83 98 05/22/24 14:11 85 97 05/22/24 14:06 86 97 05/22/24 14:03 77 128/70 05/22/24 14:01 88 98 05/22/24 13:56 84 96 05/22/24 13:51 84 144/73 H 97 05/22/24 13:49 80 129/66 05/22/24 13:46 78 98 05/22/24 13:41 79 98 05/22/24 13:36 89 96 05/22/24 13:31 92 H 126/71 97 05/22/24 13:27 86 134/75 05/22/24 13:26 84 97 05/22/24 13:22 96 H 135/61 05/22/24 13:21 83 97 05/22/24 13:16 92 H 05/22/24 13:16 91 H 139/76 97 05/22/24 13:11 92 H 97 05/22/24 13:10 92 H 126/61 05/22/24 13:07 91 H 144/84 H 05/22/24 13:06 94 H 97 05/22/24 13:04 102 H 128/64 05/22/24 13:01 100 H 139/69 98 05/22/24 12:58 92 H 134/68 05/22/24 12:56 106 H 99 05/22/24 12:55 92 H 153/68 H 05/22/24 12:52 94 H 158/74 H 05/22/24 12:51 99 H 99 05/22/24 12:49 95 H 161/96 H 05/22/24 12:46 86 99 05/22/24 12:41 110 H 99 05/22/24 12:36 106 H 98 05/22/24 12:31 119 H 99 05/22/24 12:26 118 H 99 05/22/24 12:09 99 H 142/83 H 05/22/24 11:05 98.4 F 84 18 131/71 05/22/24 10:10 85 137/71 05/22/24 07:41 95 H 136/63 05/22/24 07:39 102 H 168/95 H 05/22/24 07:38 20 05/22/24 07:38 97.7 F 20 Coding Level of Care Code None Diagnoses Group beta Strep positive B95.1 Supervision of normal intrauterine in multigravida Z34.80
[2024-05-22] MEDS: fentaNYL citrate PF 100 MCG/2 ML VIAL EPI STA (15:15)
[2024-05-22] MEDS: ePHEDrine sulfate 50 MG/ML AMP ONE (15:15)
[2024-05-22] MEDS: SODIUM CHLORIDE 0.9% PF INJ 10 ML VIAL EPI STA (15:15)
--- NOTE | 2024-05-22 17:47 | Labor Progress Brief Note ---
Date of Service May 22, [address] Assessment & Plan (1) Group beta Strep positive: (2) Supervision of normal intrauterine in multigravida: Plan 33 yo at 39 6/7 wga presents for IOL VSS Fetus cat 1 Labor - pit at 6, continue induction GBS+, pcn ordered Epidural in place Admission and Anticipated Discharge Date Admission Date: May 22, 2024 Physical Exam Genitourinary: Manual OB Exam: + cervical dilation 5 cm, + cervical effacement 50% and + station -2 OB Exam Monitor Tracing: + external FHT monitor used, + external uterine monitor used (3-4) and + category I (120/mod/+accel/-decel) Results & Data Vital Signs (Past 12 Hours) Vital Signs Temp Pulse Resp BP Pulse Ox 05/22/24 17:41 89 99 05/22/24 17:36 87 99 05/22/24 17:32 83 141/74 H 05/22/24 17:31 84 98 05/22/24 17:29 18 05/22/24 17:29 18 05/22/24 17:26 83 98 05/22/24 17:21 87 98 05/22/24 17:16 82 98 05/22/24 17:11 79 98 05/22/24 17:06 81 99 05/22/24 17:02 82 144/71 H 05/22/24 17:01 78 98 05/22/24 16:59 20 05/22/24 16:59 20 05/22/24 16:56 78 98 05/22/24 16:51 82 99 05/22/24 16:46 84 98 05/22/24 16:41 83 99 05/22/24 16:36 83 98 05/22/24 16:32 76 130/75 05/22/24 16:31 82 98 05/22/24 16:30 16 05/22/24 16:30 97.7 F 16 05/22/24 16:26 85 97 05/22/24 16:21 83 98 05/22/24 16:16 78 98 05/22/24 16:11 84 98 05/22/24 16:06 81 98 05/22/24 16:02 89 136/69 05/22/24 16:01 83 98 05/22/24 15:59 20 05/22/24 15:59 20 05/22/24 15:56 82 98 05/22/24 15:51 73 99 05/22/24 15:46 81 98 05/22/24 15:41 84 99 05/22/24 15:36 81 98 05/22/24 15:31 76 137/65 98 05/22/24 15:29 18 05/22/24 15:29 18 05/22/24 15:26 76 98 05/22/24 15:21 86 97 05/22/24 15:19 81 140/67 05/22/24 15:16 77 98 05/22/24 15:11 78 98 05/22/24 15:06 85 98 05/22/24 15:04 76 127/69 05/22/24 15:01 81 98 05/22/24 14:59 18 05/22/24 14:59 18 05/22/24 14:56 83 98 05/22/24 14:51 83 98 05/22/24 14:48 78 120/59 L 05/22/24 14:46 83 97 05/22/24 14:41 84 97 05/22/24 14:36 81 98 05/22/24 14:34 80 123/58 L 05/22/24 14:31 84 98 05/22/24 14:26 75 99 05/22/24 14:25 20 05/22/24 14:25 98.4 F 20 05/22/24 14:21 75 98 05/22/24 14:19 73 143/78 H 05/22/24 14:16 83 98 05/22/24 14:11 85 97 05/22/24 14:06 86 97 05/22/24 14:03 77 128/70 05/22/24 14:01 88 98 05/22/24 13:59 22 05/22/24 13:59 22 05/22/24 13:56 84 96 05/22/24 13:51 84 144/73 H 97 05/22/24 13:49 80 129/66 05/22/24 13:46 78 98 05/22/24 13:41 79 98 05/22/24 13:36 89 96 05/22/24 13:31 92 H 126/71 97 05/22/24 13:29 20 05/22/24 13:29 20 05/22/24 13:27 86 134/75 05/22/24 13:26 84 97 05/22/24 13:22 96 H 135/61 05/22/24 13:21 83 97 05/22/24 13:16 92 H 05/22/24 13:16 91 H 139/76 97 05/22/24 13:14 18 05/22/24 13:14 18 05/22/24 13:11 92 H 97 05/22/24 13:10 92 H 126/61 05/22/24 13:07 91 H 144/84 H 05/22/24 13:06 94 H 97 05/22/24 13:04 102 H 128/64 05/22/24 13:01 100 H 139/69 98 05/22/24 12:58 92 H 134/68 05/22/24 12:57 20 05/22/24 12:57 20 05/22/24 12:56 106 H 99 05/22/24 12:55 92 H 153/68 H 05/22/24 12:52 94 H 158/74 H 05/22/24 12:51 99 H 99 05/22/24 12:49 95 H 161/96 H 05/22/24 12:46 86 99 05/22/24 12:41 110 H 99 05/22/24 12:36 106 H 98 05/22/24 12:31 119 H 99 05/22/24 12:26 118 H 99 05/22/24 12:09 99 H 142/83 H 05/22/24 11:05 98.4 F 84 18 131/71 05/22/24 10:10 85 137/71 05/22/24 07:41 95 H 136/63 05/22/24 07:39 102 H 168/95 H 05/22/24 07:38 20 05/22/24 07:38 97.7 F 20 Coding Level of Care Code None Diagnoses Group beta Strep positive B95.1 Supervision of normal intrauterine in multigravida Z34.80
--- NOTE | 2024-05-22 22:07 | Delivery Summary ---
Vaginal Delivery Summary Date of Service May 22, 2024 Vaginal Delivery Summary [facility] PREOPERATIVE DIAGNOSIS: 1. Single intrauterine at 39 6/7 wga 2. GBS+ urine POSTOPERATIVE DIAGNOSIS: 1. Single intrauterine at 39 6/7 wga 2. GBS+ urine 3. Delivered PROCEDURE: 1. Normal spontaneous vaginal delivery. SURGEON: Arlene Gonzalez MD ANESTHESIA: Epidural. QUANTITATIVE BLOOD LOSS: 106 mL FLUIDS: Continuous LR. URINE OUTPUT: 200cc crystalloid COMPLICATIONS: None. CONDITION: Stable. INDICATIONS: 33 yo at 39 6/7 wga presented for IOL. Penicillin was started for GBS+ status. Trevino bulb was placed and pitocin started. Following bulb expulsion, she received an epidural for pain control and underwent arom. She progressed to complete and desired to push FINDINGS: A viable female infant, weight pending with Apgars of 8 and 9 at 1 and 5 minutes respectively. SPECIMEN: Cord blood OPERATIVE REPORT: The patient progressed to 10 cm, 100% effaced and +2 station, pushed over intact perineum with anesthesia to deliver a viable female , weight and Apgars as above. Head of delivered in KEYANA position. Body cord was delivered through. Body and shoulders were delivered without difficulty. was delivered to maternal abdomen and nursing staff. Delayed cord clamping was performed for 60 seconds. Cord was clamped and cut. Cord blood was obtained. Placenta delivered spontaneously intact with 3-vessel cord. IV oxytocin and fundal massage were given for excellent hemostasis. Vagina, cervix, perineum, and placenta were inspected. Hemostatic periclitoral and vaginal abrasion were noted and not needed to be repaired. Sponge and needle counts correct x2. No sponges were left behind. Mother and stable in immediate period. [facility] Vaginal Delivery Charge Vaginal Delivery Codes: 79918 global code for the antepartum, delivery, and post- Delivery Type Details: [facility]
--- NOTE | 2024-05-22 22:15 | Anesthesia Procedure Note ---
Date of Service May 22, 2024 Anesthesia Post Epidural Note Vital Signs Vital Signs: Temp Pulse Resp BP Pulse Ox 98.4 F 82 18 138/70 98 05/22/24 19:10 05/22/24 22:11 05/22/24 19:10 05/22/24 22:02 05/22/24 22:11 Pain Intensity Abdomen: Pain Intensity: 9 Notes Mental Status: alert / awake / arousable and participated in evaluation Nausea / Vomiting: adequately controlled Pain: adequately controlled Airway Patency, RR, SpO2: stable & adequate BP & HR: stable & adequate Hydration State: stable & adequate Neuraxial Anesthesia: was administered and sensory block is resolving Anesthetic Complications: no major complications apparent and Pt Satisfied with anesthetic care Epidural: Removed without complications and With tip intact
[2024-05-22] MEDS ORDERED: ACETAMINOPHEN 325 MG TAB PO PRN (22:24)
[2024-05-22] MEDS ORDERED: IBUPROFEN 600 MG TAB PO PRN (22:24)
[2024-05-22] MEDS ORDERED: HYDROCORTISONE ACETATE 25 MG SUPP PR PRN (22:24)
[2024-05-22] MEDS: DIPHTHER/TETAN/PERTUS Vaccine (Tdap, Adol/Adult) 0.5mL IM ONE (23:17)
[2024-05-22] MEDS: OXYTOCIN 30 UNITS/NSS 30 UNITS/500 ML BAG IV SCH (23:17)
[2024-05-23] MEDS: BENZOCAINE 20% SPRY 85 APPLN/85 GM CAN EXT PRN (00:02)
[2024-05-23] MEDS: OXYTOCIN 30 UNITS/NSS 30 UNITS/500 ML BAG IV PRN (00:23)
[2024-05-23] MEDS: CARBOPROST TROMETHAMINE 250 MCG/ML AMPUL IM ONE (00:24)
[2024-05-23] MEDS: miSOPROStoL 200 MCG TAB PR ONE (00:25)
[2024-05-23 00:33] LABS: Albumin Globulin Ratio 1.1 (0.9-2); Albumin Level 3.3 gm/dl (3.4-5.0); BUN Creatinine Ratio 12.5 (10-20); Bilirubin,Total 0.4 mg/dl (0.2-1.0); Calcium 8.7 mg/dl (8.6-10.3); Creatinine Clr Calc Pharmacy 202.5 ml/min; Potassium 3.7 mmol/L (3.5-5.1); Total Protein 6.3 gm/dl (6.0-8.3)
--- NOTE | 2024-05-23 00:41 | Communication Note ---
Date of Service: May 23, 2024 Called by nursing due to large gush at last fundal check of recovery. I immediately presented and there was large amount of clot on the pad. Fundus fi rm with trickle. Additional fundal massage produced small amount of more clot. Second bag of pitocin was started by nursing with initial first gush. Hemabate and 800mcg [place] cytotec ordered and given with improvement. SARAH felt to have additional clot and manually removed. CBC and CMP had been ordered due to increasing mild range BPs w/o PIH s/s, cmp wnl. If remains persistently in 150s then will start labetalol as BPs had been slowly creeping up last few visits as well. Will have AM CBC due to PPH, total [id number]
[2024-05-23 00:47] LABS: Basophils # (auto) 0.04 K/uL (0.00-0.20); Basophils % (auto) 0.2 %; Eosinophils # (auto) 0.02 K/uL (0.00-0.50); Eosinophils % (auto) 0.1 %; Hematocrit (blood only) 35.6 % (37.0-47.0); Hemoglobin 11.8 g/dl (12.0-16.0); Immature Granulocytes # (auto) 0.11 K/uL (0.01-0.20); Immature Granulocytes % (auto) 0.5 %; Lymphocytes # (auto) 1.25 K/uL (1.20-3.40); Lymphocytes % (auto) 6.1 %; Mean Corpuscular Hemoglobin 28.1 pg (25.0-34.0); Mean Corpuscular Hgb Conc 33.1 g/dL (32.0-36.0); Mean Corpuscular Volume 84.8 fL (80.0-100.0); Mean Platelet Volume 11.9 fL (9.4-12.4); Monocytes % (auto) 3.4 %; Neutrophils # (auto) 18.52 K/uL (1.40-6.50); Neutrophils % (auto) 89.7 %; Platelet Count 233 K/uL (130-400); RDW Coefficient of Variation 15.1 % (11.5-14.5); RDW Standard Deviation 46.5 fL (36.4-46.3); White Blood Count 20.64 K/ul (4.8-10.8)
[2024-05-23] MEDS ORDERED: Nursing to Pharmacy Communication SCH (04:00)
[2024-05-23] MEDS: LABETALOL HCL 200 MG TAB PO SCH (04:13)
--- NOTE | 2024-05-23 05:35 | Obstetrical Progress Note ---
Date of Service May 23, 2024 Assessment & Plan (1) Encounter for care and examination after delivery: (2) hypertension: Plan Encourage ambulation Encourage breast feeding Monitor BP's Labetalol 200mg BID Continue pain meds as needed Likely discharge 05/24/24 Admission and Anticipated Discharge Date Admission Date: May 22, 2024 Supervising Physician Co-Signing Physician Notes Resident Physician Supervision Note: I interviewed and examined the patient. Discussed with Dr. Pittman and agree with findings and plan as documented in the note. Any exceptions or clarifications are listed here: PP1 s/p c/b PPH, ghtn. Started on labetalol early this am with good result, bleeding appropriate. Exam benign and wnl. Will monitor bps today, on labetalol 200mg po bid Documented By: Arlene Gonzalez MD Subjective Pt is 33 yo post- day 1 s/p at 39w6d. complicated by GBS+. Following delivery, pt had PPH and elevated BP. She has received oxytocin, carboprost, misoprostol and labetalol. Ambulation:In room Voiding:voiding normally Passing gas: yes BM: no Diet tolerance:regular diet Lochia:has reduced to small amount of bloody, no clots Feeding type: breast Current pain level: 2-3 /10 improved with ibuprofen/tylenol Resting comfortably this morning in NAD. Denies AARON, CP, SOB, N/V/D, LE pain/swelling. Review of Systems Review of Systems: As per HPI Physical Exam Constitutional: WD/WN, vitals as above Respiratory: normal respiratory effort, lungs clear to auscultation Gastrointestinal (Abdomen): normal bowel sounds, soft, nontender, no hepatosplenomegaly Uterine fundus firm and 1-2 cm above level of umbilicus Neurologic: PERRL, EOMI, accommodation nl, no face palsy, no dysarthria Moving all 4 extremities on command Psychiatric: A+Ox3, euthymic affect Results & Data Vital Signs (Past 12 Hours) Vital Signs Temp Pulse Pulse Resp BP BP Pulse Ox 05/23/24 03:00 154/94 H 05/23/24 02:30 36.7 C 73 16 156/97 H 98 05/23/24 02:30 05/23/24 01:34 84 136/62 05/23/24 01:20 93 H 130/67 05/23/24 01:05 85 129/65 05/23/24 00:50 86 140/72 05/23/24 00:29 87 154/74 H 05/23/24 00:01 74 145/68 H 05/23/24 00:00 36.8 C 18 05/22/24 23:47 75 05/22/24 23:47 141/63 H 05/22/24 23:32 81 05/22/24 23:32 157/72 H 05/22/24 23:30 36.7 C 18 05/22/24 23:17 87 151/72 H 05/22/24 23:02 76 157/68 H 05/22/24 23:00 36.7 C 18 05/22/24 22:47 77 155/75 H 05/22/24 22:45 36.7 C 18 05/22/24 22:33 85 146/81 H 05/22/24 22:30 36.7 C 18 05/22/24 22:17 81 140/74 05/22/24 22:15 36.7 C 18 05/22/24 22:11 82 98 05/22/24 22:06 96 H 98 05/22/24 22:02 83 138/70 05/22/24 22:01 83 97 05/22/24 22:00 36.7 C 18 05/22/24 21:56 78 97 05/22/24 21:51 82 97 05/22/24 21:46 84 96 05/22/24 21:41 79 96 05/22/24 21:36 87 97 05/22/24 21:31 81 96 05/22/24 21:26 106 H 96 05/22/24 21:21 95 H 95 05/22/24 21:16 93 05/22/24 21:16 87 05/22/24 21:16 86 98 05/22/24 21:11 79 98 05/22/24 21:06 91 H 98 05/22/24 21:04 83 155/79 H 05/22/24 21:01 85 98 05/22/24 20:56 83 99 05/22/24 20:51 86 98 05/22/24 20:46 88 98 05/22/24 20:41 85 99 05/22/24 20:36 87 99 05/22/24 20:34 80 157/72 H 05/22/24 20:31 83 99 05/22/24 20:26 89 99 05/22/24 20:21 83 98 05/22/24 20:16 88 98 05/22/24 20:11 89 98 05/22/24 20:06 86 98 05/22/24 20:03 86 120/62 05/22/24 20:01 82 97 05/22/24 19:56 84 98 05/22/24 19:51 76 99 05/22/24 19:46 80 98 05/22/24 19:41 72 97 05/22/24 19:36 77 98 05/22/24 19:33 72 138/63 05/22/24 19:31 75 98 05/22/24 19:26 69 98 05/22/24 19:21 69 98 05/22/24 19:16 80 98 05/22/24 19:11 70 98 05/22/24 19:10 36.9 C 18 05/22/24 19:10 18 05/22/24 19:10 36.9 C 18 05/22/24 19:06 83 97 05/22/24 19:03 91 H 142/72 H 05/22/24 19:01 78 98 05/22/24 18:59 18 05/22/24 18:59 18 05/22/24 18:56 76 98 05/22/24 18:51 79 99 05/22/24 18:46 85 99 05/22/24 18:41 80 98 05/22/24 18:36 84 97 05/22/24 18:32 84 146/72 H 05/22/24 18:31 36.6 C 84 20 98 05/22/24 18:26 86 99 05/22/24 18:21 84 99 05/22/24 18:16 84 98 05/22/24 18:11 83 98 05/22/24 18:06 82 99 05/22/24 18:02 81 140/74 05/22/24 18:01 84 98 05/22/24 17:59 20 05/22/24 17:59 20 05/22/24 17:56 81 98 05/22/24 17:51 85 99 05/22/24 17:46 79 98 05/22/24 17:41 89 99 05/22/24 17:36 87 99 O2 Del Method 05/23/24 03:00 05/23/24 02:30 Room Air 05/23/24 02:30 Room Air 05/23/24 01:34 05/23/24 01:20 05/23/24 01:05 05/23/24 00:50 05/23/24 00:29 05/23/24 00:01 05/23/24 00:00 05/22/24 23:47 05/22/24 23:47 05/22/24 23:32 05/22/24 23:32 05/22/24 23:30 05/22/24 23:17 05/22/24 23:02 05/22/24 23:00 05/22/24 22:47 05/22/24 22:45 05/22/24 22:33 05/22/24 22:30 05/22/24 22:17 05/22/24 22:15 05/22/24 22:11 05/22/24 22:06 05/22/24 22:02 05/22/24 22:01 05/22/24 22:00 05/22/24 21:56 05/22/24 21:51 05/22/24 21:46 05/22/24 21:41 05/22/24 21:36 05/22/24 21:31 05/22/24 21:26 05/22/24 21:21 05/22/24 21:16 05/22/24 21:16 05/22/24 21:16 05/22/24 21:11 05/22/24 21:06 05/22/24 21:04 05/22/24 21:01 05/22/24 20:56 05/22/24 20:51 05/22/24 20:46 05/22/24 20:41 05/22/24 20:36 05/22/24 20:34 05/22/24 20:31 05/22/24 20:26 05/22/24 20:21 05/22/24 20:16 05/22/24 20:11 05/22/24 20:06 05/22/24 20:03 05/22/24 20:01 05/22/24 19:56 05/22/24 19:51 05/22/24 19:46 05/22/24 19:41 05/22/24 19:36 05/22/24 19:33 05/22/24 19:31 05/22/24 19:26 05/22/24 19:21 05/22/24 19:16 05/22/24 19:11 05/22/24 19:10 05/22/24 19:10 05/22/24 19:10 05/22/24 19:06 05/22/24 19:03 05/22/24 19:01 05/22/24 18:59 05/22/24 18:59 05/22/24 18:56 05/22/24 18:51 05/22/24 18:46 05/22/24 18:41 05/22/24 18:36 05/22/24 18:32 05/22/24 18:31 05/22/24 18:26 05/22/24 18:21 05/22/24 18:16 05/22/24 18:11 05/22/24 18:06 05/22/24 18:02 05/22/24 18:01 05/22/24 17:59 05/22/24 17:59 05/22/24 17:56 05/22/24 17:51 05/22/24 17:46 05/22/24 17:41 05/22/24 17:36 Resident Activity Tracking Resident Involvement: Resident Care Provided Care Provided: Adult Hospital Medicine
[2024-05-23 06:21] LABS: Hematocrit (blood only) 33.6 % (37.0-47.0); Hemoglobin 11.2 g/dl (12.0-16.0); Mean Corpuscular Hemoglobin 28.4 pg (25.0-34.0); Mean Corpuscular Hgb Conc 33.3 g/dL (32.0-36.0); Mean Corpuscular Volume 85.1 fL (80.0-100.0); Mean Platelet Volume 11.4 fL (9.4-12.4); Platelet Count 231 K/uL (130-400); RDW Coefficient of Variation 15.1 % (11.5-14.5); RDW Standard Deviation 46.9 fL (36.4-46.3); Red Blood Count 3.95 M/uL (4.20-5.40); White Blood Count 18.63 K/ul (4.8-10.8)
[2024-05-23] MEDS: FERROUS SULFATE 325 MG TAB PO SCH (08:25)
[2024-05-23] MEDS: PRENATAL VITAMIN 1 TAB PO SCH (08:25)
[2024-05-23] MEDS: DOCUSATE SODIUM 100 MG CAP PO SCH (08:25)
[2024-05-23] MEDS ORDERED: LABETALOL HCL 200 MG TAB PO SCH ×2 (09:00)
[2024-05-23 20:27] VITALS: BP 122/73; PULSE 91; RESP 18; TEMP 98.2; O2SAT 98
[2024-05-23] MEDS: bisacodyL 5 MG TABEC PO SCH (21:10)
[2024-05-24] MEDS ORDERED: bisacodyL 10 MG SUPP PR PRN
== END 2024-05-23 22:26 | disposition home or self-care (01) | DRG 807 ==
LOC: 4S1 07:31 → 4E2 05-23 02:45